=== PATIENT | male | born 1940 | race Caucasian/White ===

== ENCOUNTER 2024-04-07 15:25 | Inpatient (IN) ==
--- NOTE | 2024-04-07 16:05 | Emergency Department Note ---
Impression & Plan Atrial fibrillation, new onset, Human metapneumovirus (hMPV) pneumonia, Anemia ED Provider Note NAME: SANTINO [id number] ARASH AGE: 83 SEX: M : 1940 ARRIVES VIA: Ambulance INFORMANT: Patient, Triage note nursing report ED PROVIDER(S): Ravi Jacobson MD CHIEF COMPLAINT: Shortness of breath, A-fib MEDICAL DECISION MAKING: Patient presents due to concern for shortness of breath. Patient was noted to be in A-fib. IV was established and blood work was obtained. Chest x-ray does show right- sided pleural effusion as well as possible opacity at the right base Patient does not complain of any cough white count is normal. Hemoglobin 9.2. Kidney function is unremarkable. Pro-Thomas was added TSH normal. Urinalysis negative for obvious infection. Bio fire positive for human metapneumovirus. As the patient does have an elevated [id number] score heparin was ordered along with IV Lopressor. Antibiotics deferred to inpatient team at this time. I did speak with the on-call hospitalist KARRI Curiel and the patient was admitted by Dr. Butler. Critical Care: I have personally spent 35 minutes of critical care time in direct management of this patient. This includes bedside care, interpretation of diagnostic studies, and testing, discussion with consultants, patient, and family members, and other require inpatient management activities. This 35 minutes is in excess of all separately billable procedures. Discussion w/ other healthcare providers: KARRI Peng and Dr. Butler inpatient medicine service Prior /Outside records reviewed: I reviewed the patient's records presented from [place] Differential diagnosis: Reactive airway disease, pneumonia, pneumothorax, COPD, CHF, ACS, pulmonary embolism, musculoskeletal, GERD as well as other pathologies were considered. Diagnostics, as interpreted by me: ECG: A-fib, rate of 100, normal QRS, normal axis no ST elevations. Cardiac monitoring: An order was placed for continuous cardiac monitoring. The monitor shows a rate of 95 with sinus rhythm. Patient was placed on pulse oximetry Medical decision rules: [id number] score Imaging studies: I informally interpreted the patient's Chest x-ray shows right-sided pleural effusion as well as possible opacity in the right base with formal report to follow. HPI: Patient presents due to concern for shortness of breath. Patient reportedly had shortness of breath beginning yesterday which is been fairly constant and unchanged. Patient denies any lightheadedness or dizziness. No palpitations. Patient Nuys any chest pains nausea vomiting or diarrhea. The patient is a smoker. Patient does present from [facility] where he states he has been there for approximate 6 months. No known prior history of A-fib. Review of the patient's medical history does not show any A-fib. The patient is not on any anticoagulant medication. PAST MEDICAL HISTORY: See Below PAST SURGICAL HISTORY: See Below SOCIAL HISTORY: See Below HOME MEDICATIONS: See Below ALLERGIES: See Below VITALS: See Below PHYSICAL EXAMINATION: GENERAL: NAD, non-toxic. EYE EXAM: Normal conjunctiva. PERRL, no anisocoria and EOM's grossly intact w/o pain. OROPHARYNX: Moist mucus membranes, grossly normal dentition. NECK: Trachea midline, no stridor. LUNGS: Clear to auscultation. Normal chest wall mechanics. HEART: Irregular irregular, no MRG. ABDOMEN: Abdomen soft, non-tender, no masses, no rebound or guarding. BACK: No CVA TTP. SKIN: No rashes and no bruising. UPPER EXTREMITIES: Upper extremities are grossly normal. LOWER EXTREMITIES: Grossly normal, no edema. NEURO EXAM: A&O x3, cranial nerves II-XII grossly intact, normal speech, moves all 4 extremities. Past Med/Surg History Problem List (Updated 04/08/24 @ 00:36 by Ravi Jacobson MD) Anemia (Acute) Human metapneumovirus (hMPV) pneumonia (Acute) Atrial fibrillation, new onset (Acute) Medical History Esophageal cancer New onset atrial fibrillation Anemia Human metapneumovirus (hMPV) pneumonia PNA (pneumonia) GERD (gastroesophageal reflux disease) History of esophageal cancer Surgical History No pertinent past surgical history Social History Smoking Status: Current every day smoker Tobacco Type: E-cigarettes / Vaping Second Hand Exposure: No; Do You Dip or Chew Tobacco: No; Tobacco Cessation Education Requested by Patient: No Hx Alcohol Use: No Hx Substance Use: No Preferred Language: Mosotho Communication Ability: Effective 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 Beliefs That Will Affect Care: None Current Living Situation: Other Other Information That Helps Us Care for You: No Feels Safe at Home: Yes Safety Concerns: Feels Safe At This Time Assistive Devices: Walker Allergies Allergies Allergy/AdvReac Type Severity Reaction Status Date / Time No Known Allergies Allergy Unverified 04/07/24 18:41 Home Meds Home Medications Medication Instructions Recorded Confirmed acetaminophen 500 mg tablet 500 mg PO QID 04/07/24 04/07/24 (Tylenol Extra Strength) alendronate 70 mg tablet 70 mg PO DAILY 04/07/24 04/07/24 aspirin 81 mg tablet,delayed 81 mg PO DAILY 04/07/24 04/07/24 release brimonidine 0.2 % eye drops 1 drp OPB BID 04/07/24 04/07/24 clindamycin HCl 150 mg capsule 300 mg PO TID 04/07/24 04/07/24 latanoprost 0.005 % eye drops 1 drp OPB HS 04/07/24 04/07/24 meloxicam 7.5 mg tablet 7.5 mg PO DAILY 04/07/24 04/07/24 metoprolol tartrate 25 mg tablet 25 mg PO BID 04/07/24 04/07/24 omeprazole 20 mg capsule,delayed 20 mg PO DAILY 04/07/24 04/07/24 release omeprazole 40 mg capsule,delayed 40 mg PO DAILY 04/07/24 04/07/24 release timolol 0.5 % eye drops 1 drp OPB BID 04/07/24 04/07/24 Results & Data (ED) Vital Signs Vital Signs - 24 hr 04/07/24 15:57 04/07/24 16:06 04/07/24 16:06 Temperature 36.6 C Temperature Source Oral Pulse Rate 102 H 90 Pulse Rate from SpO2 Sensor Pulse Rhythm Regular Pulse Strength Normal Respiratory Rate 21 Respiratory Effort / Characteristics Non-Labored Spontaneous Non-Labored Spontaneous Short of Breath Respiratory Depth Normal Normal Respiratory Pattern Regular Regular Blood Pressure 174/93 H Blood Pressure Mean 120 Blood Pressure Position Lying Pulse Oximetry 90 Oxygen Delivery Method Room Air Room Air Sepsis Recent Fever Within 48 Hours No Sepsis New/Unexplained Change in Mental Status No Sepsis Action Taken by Nursing No Action Required 04/07/24 16:06 04/07/24 16:27 04/07/24 16:30 Temperature Temperature Source Pulse Rate 99 H Pulse Rate from SpO2 Sensor 95 H Pulse Rhythm Pulse Strength Respiratory Rate 26 H Respiratory Effort / Characteristics Respiratory Depth Respiratory Pattern Blood Pressure 172/89 H Blood Pressure Mean 110 Blood Pressure Position Pulse Oximetry 92 Oxygen Delivery Method Room Air Room Air Sepsis Recent Fever Within 48 Hours Sepsis New/Unexplained Change in Mental Status Sepsis Action Taken by Nursing 04/07/24 17:00 Temperature Temperature Source Pulse Rate 103 H Pulse Rate from SpO2 Sensor 104 H Pulse Rhythm Pulse Strength Respiratory Rate 23 Respiratory Effort / Characteristics Respiratory Depth Respiratory Pattern Blood Pressure 185/89 H Blood Pressure Mean 121 Blood Pressure Position Pulse Oximetry 94 Oxygen Delivery Method Room Air Sepsis Recent Fever Within 48 Hours Sepsis New/Unexplained Change in Mental Status Sepsis Action Taken by Long-Term Medications Current Medication List: was personally reviewed by me Laboratory Data Attestation: I reviewed the patient's lab results. 04/07/24 16:10 04/07/24 16:10 Lab Results 04/07/24 04/07/24 04/07/24 Range/Units 16:10 16:10 16:10 WBC 8.99 (4.8-10.8) K/ul RBC 3.98 L (4.70-6.10) M/uL Hgb 9.2 L (14.0-18.0) g/dl Hct 30.7 L (42.0-52.0) % MCV 77.1 L (80.0-100.0) fL MCH 23.1 L (25.0-34.0) pg MCHC 30.0 L (32.0-36.0) g/dL RDW Std Deviation 48.7 H (36.4-46.3) fL RDW Coeff of Vicente 17.4 H (11.5-14.5) % Plt Count 400 (130-400) K/uL MPV 9.1 L (9.4-12.4) fL Immature Gran % (Auto) 0.4 % Neut % (Auto) 70.4 % Lymph % (Auto) 19.6 % Otoe % (Auto) 8.0 % Eos % (Auto) 1.2 % Baso % (Auto) 0.4 % Reticulocyte % (Auto) Cancelled 1.96 Neut # (Auto) 6.32 (1.40-6.50) K/uL Lymph # (Auto) 1.76 (1.20-3.40) K/uL Otoe # (Auto) 0.72 H (0.11-0.59) K/uL Eos # (Auto) 0.11 (0.00-0.50) K/uL Baso # (Auto) 0.04 (0.00-0.20) K/uL Reticulocyte # Cancelled 0.100 Immature Gran # (Auto) 0.04 (0.01-0.20) K/uL PT 11.7 (9.0-12.0) Seconds INR 1.1 (0.9-1.1) APTT 29 (21-31) Seconds PTT Ratio 1.1 Sodium 136 (136-145) mmol/L Potassium 4.2 (3.5-5.1) mmol/L Chloride 104 (98-107) mmol/L Carbon Dioxide 26 (21-32) mmol/L Anion Gap 6 (3-11) BUN 17 (6-23) mg/dl Creatinine 0.91 (0.6-1.4) mg/dl Est Cr Clr Drug Dosing 29.1 ml/min Est GFR ( Amer) 89.4 ml/min Est GFR (Non-Af Amer) 77.1 ml/min BUN/Creatinine Ratio 18.7 (10-20) Glucose 109 H (70-99(Fasting)) mg/dl Calcium 8.9 (8.6-10.3) mg/dl Magnesium 1.9 (1.7-2.4) mg/dl Iron 13 L (35-175) mcg/dl Transferrin 377 H (200-360) mg/dl Ferritin 9.2 (8-388) ng/ml Total Bilirubin 0.5 (0.2-1.0) mg/dl AST 23 (13-39) U/L ALT 13 (7-52) U/L Alkaline Phosphatase 52 (34-104) U/L Troponin I High Sens 16.3 (0-20) pg/ml Total Protein 7.7 (6.0-8.3) gm/dl Albumin 4.1 (3.4-5.0) gm/dl Globulin 3.6 (2.5-4.0) gm/dl Albumin/Globulin Ratio 1.1 (0.9-2) Vitamin B12 190 (180-914) pg/ml Procalcitonin < 0.02 (0-0.5) ng/ml TSH 1.940 (0.300-4.500) uIu/ml Adenovirus (PCR) Not Detected (NotDetected) B. pertussis DNA (PCR) Not Detected (NotDetected) B.parapertussis DNA PCR Not Detected (NotDetected) C. pneumoniae DNA (PCR) Not Detected (NotDetected) Coronavirus OC43 (PCR) Not Detected (NotDetected) Coronavirus HKU1 (PCR) Not Detected (NotDetected) Coronavirus 229E (PCR) Not Detected (NotDetected) SARS-CoV-2 (PCR) Not Detected (NotDetected) Coronavirus NL63 (PCR) Not Detected (NotDetected) Human Metapneumovir PCR DETECTED A (NotDetected) Influenza Type A (PCR) Not Detected (NotDetected) Influenza Type B (PCR) Not Detected (NotDetected) M. pneumoniae (PCR) Not Detected (NotDetected) Parainfluenza 1 (PCR) Not Detected (NotDetected) Parainfluenza 2 (PCR) Not Detected (NotDetected) Parainfluenza 3 (PCR) Not Detected (NotDetected) Parainfluenza 4 (PCR) Not Detected (NotDetected) RSV (PCR) Not Detected (NotDetected) Entero/Rhino (PCR) Not Detected (NotDetected) Administered Medications Brimonidine Tartrate (Brimonidine Tartrate 0.2% 5ml) 1 drops OPB BID SHIRA Stop: 05/07/24 20:59 Last Admin: 04/07/24 22:32 Dose: 1 drops Documented By: ELLIS Heparin Sodium/Dextrose (Heparin Sodium/Dextrose) 25,000 units in 500 mls @ 15 mls/hr IV .Q24H [facility]; Protocol Stop: 05/07/24 17:59 Last Admin: 04/07/24 18:06 Dose: 750 units/hr, 15 mls/hr Documented By: NANCI Co-signed By: ISABEL Ceftriaxone Sodium (Rocephin) 2,000 mg in 50 mls @ 100 mls/hr IV Q24H [facility] Stop: 04/14/24 18:59 Last Infusion: 04/07/24 20:44 Dose: Infused Documented By: Admin: 04/07/24 20:02 Dose: 100 mls/hr Documented By: NANCI Doxycycline Hyclate 100 mg/ (Dextrose) 100 mls @ 50 mls/hr IV Q12H [facility] Stop: 04/14/24 18:59 Last Infusion: 04/07/24 22:30 Dose: Infused Documented By: AMMicheline Admin: 04/07/24 20:14 Dose: 50 mls/hr Documented By: NANCI Latanoprost (Latanoprost 0.005% Op Soln 2.5 Ml Btl) 1 drops OPB HS SHIRA Stop: 05/07/24 20:59 Last Admin: 04/07/24 22:32 Dose: 1 drops Documented By: ELLIS Metoprolol Tartrate (Metoprolol Tartrate 25 Mg Tab) 25 mg PO Q6H [facility] Stop: 05/07/24 19:59 Last Admin: 04/07/24 20:02 Dose: 25 mg Documented By: NANCI Timolol Maleate (Timolol Maleate 0.5% Op Soln 5 Ml Btl) 1 drops OPB BID SHIRA Stop: 05/07/24 20:59 Last Admin: 04/07/24 22:32 Dose: 1 drops Documented By: ELLIS Discontinued Medications Furosemide (Furosemide Inj 20 Mg/2 Ml Vial) 10 mg IV ONE ONE Stop: 04/07/24 20:48 Last Admin: 04/07/24 20:51 Dose: 10 mg Documented By: NANCI Heparin Sodium/Dextrose (Heparin Iv Adult Wt-Based Low-Dose *No* Initial Bolus Protocol) 1 each IV ONE STA; Protocol Stop: 04/07/24 17:32 Last Admin: 04/07/24 18:03 Dose: Not Given Documented By: NANCI Imaging Data Radiologist's Impression: Chest X-Ray 04/07/24 16:14 XR chest 1V portable HISTORY: 83 years-old Male Dyspnea COMPARISON: None TECHNIQUE: AP view the chest FINDINGS: Cardiac silhouette is enlarged. Pulmonary vascular congestion with interstitial coarsening. Layering right greater than left pleural effusions. No pneumothorax. Ill-defined patchy bilateral airspace opacities. Left upper abdominal surgical clips. Bones appear grossly intact. IMPRESSION: 1. Cardiomegaly with interstitial pulmonary edema and small pleural effusions. 2. Additional patchy ill-defined bilateral airspace opacities may represent alveolar pulmonary edema versus pneumonia. ACT 112: Negative or not required by law. The above report was generated using voice recognition software. It may contain grammatical, syntax or spelling errors. Electronically signed by: Wolf Ogden M.D. 04/07/2024 6:04 PM Discharge Plan Visit Data Chief Complaint: Shortness of Breath/Dyspnea Stated Complaint: AFIB, SOB ED Provider: Ravi Jacobson Discharge Problem: Atrial fibrillation, new onset, Human metapneumovirus (hMPV) pneumonia, Anemia Patient Disposition: Admitted As Inpatient Discharge Instructions Interventions: ED Discharge Assessment Last Done: 04/07/24 19:34 Discharge Problem: Anemia Qualifiers: Anemia type: unspecified type Qualified Code(s): D64.9 - Anemia, unspecified
[2024-04-07 16:29] LABS: Basophils # (auto) 0.04 K/uL (0.00-0.20); Basophils % (auto) 0.4 %; Eosinophils # (auto) 0.11 K/uL (0.00-0.50); Eosinophils % (auto) 1.2 %; Hematocrit (blood only) 30.7 % (42.0-52.0); Hemoglobin 9.2 g/dl (14.0-18.0); Immature Granulocytes # (auto) 0.04 K/uL (0.01-0.20); Immature Granulocytes % (auto) 0.4 %; Lymphocytes # (auto) 1.76 K/uL (1.20-3.40); Lymphocytes % (auto) 19.6 %; Mean Corpuscular Hemoglobin 23.1 pg (25.0-34.0); Mean Corpuscular Volume 77.1 fL (80.0-100.0); Mean Platelet Volume 9.1 fL (9.4-12.4); Monocytes # (auto) 0.72 K/uL (0.11-0.59); Neutrophils # (auto) 6.32 K/uL (1.40-6.50); Neutrophils % (auto) 70.4 %; Platelet Count 400 K/uL (130-400); RDW Coefficient of Variation 17.4 % (11.5-14.5); RDW Standard Deviation 48.7 fL (36.4-46.3); Red Blood Count 3.98 M/uL (4.70-6.10); White Blood Count 8.99 K/ul (4.8-10.8)
[2024-04-07 16:43] LABS: Albumin Globulin Ratio 1.1 (0.9-2); Albumin Level 4.1 gm/dl (3.4-5.0); BUN Creatinine Ratio 18.7 (10-20); Bilirubin,Total 0.5 mg/dl (0.2-1.0); Calcium 8.9 mg/dl (8.6-10.3); Creatinine Clr Calc Pharmacy 29.1 ml/min; Est GFR (African American) 89.4 ml/min; Est GFR (Non-African American) 77.1 ml/min; Globulin 3.6 gm/dl (2.5-4.0); Magnesium 1.9 mg/dl (1.7-2.4); Potassium 4.2 mmol/L (3.5-5.1); Total Protein 7.7 gm/dl (6.0-8.3)
[2024-04-07 16:50] LABS: Troponin I High Sensitivity 16.3 pg/ml (0-20)
[2024-04-07 17:11] LABS: INR 1.1 (0.9-1.1); Partial Thromboplastin Ratio 1.1; Partial Thromboplastin Time 29 Seconds (21-31); Prothrombin Time 11.7 Seconds (9.0-12.0)
[2024-04-07 17:26] LABS: Adenovirus PCR Not Detected (NotDetected); Bordetella parapertussis PCR Not Detected (NotDetected); Bordetella pertussis PCR Not Detected (NotDetected); Chlamydia pneumoniae PCR Not Detected (NotDetected); Coronavirus 229E PCR Not Detected (NotDetected); Coronavirus CoV-2 (COVID19)PCR Not Detected (NotDetected); Coronavirus HKU1 PCR Not Detected (NotDetected); Coronavirus NL63 PCR Not Detected (NotDetected); Coronavirus OC43PCR Not Detected (NotDetected); Human Metapneumovirus PCR DETECTED (NotDetected); Influenza A PCR Not Detected (NotDetected); Influenza B PCR Not Detected (NotDetected); Mycoplasma pneumoniae PCR Not Detected (NotDetected); Parainfluenza Virus 1 PCR Not Detected (NotDetected); Parainfluenza Virus 2 PCR Not Detected (NotDetected); Parainfluenza Virus 3 PCR Not Detected (NotDetected); Parainfluenza Virus 4 PCR Not Detected (NotDetected); Respiratory Syncytial VirusPCR Not Detected (NotDetected); Rhinovirus/Enterovirus PCR Not Detected (NotDetected)
[2024-04-07] MEDS ORDERED: METOPROLOL TARTRATE 1 MG/ML VIAL IV PRN ×2 (17:47→18:46)
[2024-04-07] MEDS ORDERED: POLYETHYLENE (MIRALAX) 17 GM PACK PO PRN (17:51)
[2024-04-07] MEDS ORDERED: ONDANSETRON INJ 2 MG/ML 2 ML VIAL IV PRN (17:51)
[2024-04-07] MEDS ORDERED: ALUMINUM/MAGNESIUM SUSP 30 ML UDC PO PRN (17:51)
[2024-04-07] MEDS ORDERED: MAGNESIUM HYDROXIDE SUSP 30 ML UDC PO PRN (17:51)
--- NOTE | 2024-04-07 18:02 | History & Physical Report ---
Date of Service April 07, 2024 Assessment & Plan (1) New onset atrial fibrillation: (2) Anemia: (3) Human metapneumovirus (hMPV) pneumonia: (4) History of esophageal cancer: (5) GERD (gastroesophageal reflux disease): Plan Mr. Landa is an 83 year old male inmate that presented to the ED today from [facility] with complaints of SOB that started yesterday. He did not have hypoxia associated with his SOB and reports that he appears to be 'positional'. In the ED he was found to be in Atrial Fibrillation on the heart monitor. He has no prior history of A-Fib and is not on any anticoagulation medications. In the ED no leukocytosis, otherwise labs unremarkable. Mg 1.9, K+ 4.2, Troponin 16.3. Biofire done in the ED; positive for hMetapneumovirus (hMPV). Patient has a right medial aspect of his heel dime sized wound with purulent drainage that was started on oral clindamycin yesterday and due to complete treatment on 04/16. Additional abrasion on left mid padgett. Hemoglobin 9.2 and given history of esophageal cancer status post surgery and chemo therapy proceed with anemia workup. Patient will be admitted to PCU for further evaluation and management of new onset AF likely in the setting of hMPV. Low dose Heparin gtt without bolus initiated in ED, Will start Metoprolol 25 mg PO Q6 for rate control, obtain ECHO to evaluate for valve abnormalities, Procalcitonin ordered, Wound culture of R heel, blood cultures, Cardiology consultation. Will keep NPO after MN pending Cards consult and will place on Droplet precautions with supportive treatment including flutter valve, incentive spirometry, and Mucinex. Given patient's hemoglobin 9.2 and history of esophageal cancer we will proceed with anemia workup. Will add on TSH. Given possibility of pneumonia in the setting of an incarcerated elderly gentleman recently started on oral antibiotics will initiate IV antibiotics with Rocephin plus Doxy cyclin and will obtain wound culture and UA. Will adjust antibiotic coverage based on culture results. New onset atrial fibrillation: Acute Suspect in the setting of infection due to positive HM PV on bio fire and questionable UA [id number] score: 3 ECHO ordered Heparin gtt started in ED;low dose/no bolus; continue for anticoagulation Patient takes metoprolol 25 mg twice daily as outpatient; will order metoprolol 25 mg every 6 TSH ordered Cardiology consult placed N.p.o. after midnight hMPV pneumonia: Acute Chest x-ray indicates: Cardiomegaly with interstitial pulmonary edema and small pleural effusions. Additional patchy ill-defined bilateral airspace opacities may represent alveolar pulmonary edema versus pneumonia. Given advanced age with possibly numerous source of infection will cover with IV Rocephin and Doxy for now and adjust based on culture results Blood cultures and UA ordered MRSA swab ordered No cough; no sputum cx ordered Supportive treatment with incentive spirometry plus flutter valve Right ankle wound: Acute Reports started a few weeks ago Was started yesterday on clindamycin for a positive wound culture as an outpatient; unsure what the culture results were 2 wounds; right heel plus left mid padgett Wound culture ordered WOCN consult placed for appropriate dressing Anemia of unknown cause: Acute Hemoglobin 9.2 No overt signs of active bleeding Will complete anemia workup with serum TIBC, ferritin levels, retic count, iron, etc. History of esophageal cancer: Chronic Reports underwent surgery and chemotherapy 7 years ago Received care at [facility]; no longer following Disposition: PCP: MARILYN Amrik CODE STATUS: Full code VTE prophylaxis: On heparin drip I spent a total of 87 minutes coordinating, documenting, and providing care for this patient excluding time spent in the performance of separately billed services. All of the aforementioned completed while collaborating with the assigned attending physician for a full treatment plan. Please see their addendum for further details. History of Present Illness Chief Complaint: new onset AF Primary Care Provider: [facility] Mr. Landa is an 83 year old male that presented to the ED today from [facility] with complaints of SOB that started yesterday. He did not have hypoxia associated with his SOB and reports that he appears to be 'positional'. In the ED he was found to be in Atrial Fibrillation on the heart monitor. He has no prior history of A-Fib and is not on any anticoagulation medications. In the ED no leukocytosis, otherwise labs unremarkable. Mg 1.9, K+ 4.2, Troponin 16.3. Biofire done in the ED; positive for hMetapneumovirus (hMPV). Patient has a right medial aspect of his heel dime sized wound with purulent drainage that was started on oral clindamycin yesterday and due to complete treatment on 04/16. Additional abrasion on left mid padgett. Patient with hemoglobin 9.2 and given history of esophageal cancer status post surgery and chemo therapy proceed with anemia workup. Chest x-ray performed in the ED indicated cardiomegaly with interstitial pulmonary edema and small pleural effusions with patchy opacities potentially representing pulmonary edema versus pneumonia. On examination patient AAO x 4 and able to participate in full review of systems in no apparent distress. Patient did not become hypoxic during my encounter. Lung sounds anteriorly clear to auscultation posterior lower lung bases with crackles. Otherwise euvolemic to dry on exam. Do not suspect patient to be in overt heart failure and no known history of heart failure. Patient will be admitted to PCU for further evaluation and management of new onset AF likely in the setting of hMPV. Low dose Heparin gtt without bolus initiated in ED, Will start Metoprolol 25 mg PO Q6 for rate control, obtain ECHO to evaluate for valve abnormalities, Procalcitonin ordered, Wound culture of R heel, blood cultures, Cardiology consultation. Will keep NPO after MN pending Cards consult and will place on Droplet precautions with supportive treatment including flutter valve, incentive spirometry, and Mucinex. Given patient's hemoglobin 9.2 and history of esophageal cancer we will proceed with anemia workup. Will add on TSH. Given possibility of pneumonia in the setting of an incarcerated elderly gentleman recently started on oral antibiotics will initiate IV antibiotics with Rocephin plus Doxy cyclin and will obtain wound culture and UA. Will adjust antibiotic coverage based on culture results. Allergies Allergy/AdvReac Type Severity Reaction Status Date / Time No Known Allergies Allergy Unverified 04/07/24 18:41 Home Medications Medication Instructions Recorded Confirmed Type acetaminophen 500 mg tablet 500 mg PO QID 04/07/24 04/07/24 History (Tylenol Extra Strength) alendronate 70 mg tablet 70 mg PO DAILY 04/07/24 04/07/24 History aspirin 81 mg tablet,delayed 81 mg PO DAILY 04/07/24 04/07/24 History release brimonidine 0.2 % eye drops 1 drp OPB BID 04/07/24 04/07/24 History clindamycin HCl 150 mg capsule 300 mg PO TID 04/07/24 04/07/24 History latanoprost 0.005 % eye drops 1 drp OPB HS 04/07/24 04/07/24 History meloxicam 7.5 mg tablet 7.5 mg PO DAILY 04/07/24 04/07/24 History metoprolol tartrate 25 mg tablet 25 mg PO BID 04/07/24 04/07/24 History omeprazole 20 mg capsule,delayed 20 mg PO DAILY 04/07/24 04/07/24 History release omeprazole 40 mg capsule,delayed 40 mg PO DAILY 04/07/24 04/07/24 History release timolol 0.5 % eye drops 1 drp OPB BID 04/07/24 04/07/24 History Past Med/Surg History Problem List Medical History (Updated 04/07/24 @ 19:30 by KARRI Oleary) Esophageal cancer New onset atrial fibrillation Anemia Human metapneumovirus (hMPV) pneumonia PNA (pneumonia) GERD (gastroesophageal reflux disease) History of esophageal cancer Surgical History (Updated 04/07/24 @ 19:30 by KARIR Oleary) No pertinent past surgical history Social History Smoking Status: Former smoker Preferred Language: Lao Feels Safe at Home: No Review of Systems Review of Systems: Neuro: (-) Falls, trauma, slurred speech HEENT: (-) KULKARNI, dizziness, dysphagia, visual or auditory changes CV: (-) CP, palpitations, swelling Resp: (-) SOB GI: (-) appetite changes, N/V/D, bowel changes : (-) urinary changes Skin: (-) rashes (+) two open areas R finger (+) R ankle open area Psych: (-) anxiety, depression Physical Exam Physical Exam: Neuro: AAOx4, PERRLA, no aphagia, memory changes, CNII-XII grossly intact HEENT: head normocephalic, moist mucus membranes CV: S1/S2, (-) M/G/R, (-) edema, cap refill < 3 seconds Resp: Lungs anteriorly CTA posterior crackles left lower base GI: Abdomen S/NT/ND, Ax4 bowel sounds, (-) CVA tenderness Musculoskeletal: 5/5 B/L UE strength, 5/5 B/L LE strength. No gait disturbance Skin: (-) rashes , (-) erythema. (+) two open areas R finger, dry (+) R medial aspect ankle with purulent drainage Psych: euthymic mood Results & Data Results & Data Vital Signs (Past 12 Hours) Vital Signs Temp Pulse Resp BP Pulse Ox O2 Del Method 04/07/24 17:00 103 H 23 185/89 H 94 Room Air 04/07/24 16:30 172/89 H 04/07/24 16:27 99 H 26 H 92 Room Air 04/07/24 16:06 Room Air 04/07/24 16:06 Room Air 04/07/24 16:06 36.6 C 90 21 174/93 H 90 Room Air 04/07/24 15:57 102 H Laboratory Results Short CBC 04/07/24 Range/Units 16:10 WBC 8.99 (4.8-10.8) K/ul Hgb 9.2 L (14.0-18.0) g/dl Hct 30.7 L (42.0-52.0) % Plt Count 400 (130-400) K/uL BMP 04/07/24 16:10 Sodium 136 Potassium 4.2 Chloride 104 Carbon Dioxide 26 BUN 17 Creatinine 0.91 Glucose 109 H Calcium 8.9 Liver Function 04/07/24 Range/Units 16:10 Total Bilirubin 0.5 (0.2-1.0) mg/dl AST 23 (13-39) U/L ALT 13 (7-52) U/L Alkaline Phosphatase 52 (34-104) U/L Albumin 4.1 (3.4-5.0) gm/dl Diagnostic Findings Chest X-Ray 04/07/24 16:14 XR chest 1V portable HISTORY: 83 years-old Male Dyspnea COMPARISON: None TECHNIQUE: AP view the chest FINDINGS: Cardiac silhouette is enlarged. Pulmonary vascular congestion with interstitial coarsening. Layering right greater than left pleural effusions. No pneumothorax. Ill-defined patchy bilateral airspace opacities. Left upper abdominal surgical clips. Bones appear grossly intact. IMPRESSION: 1. Cardiomegaly with interstitial pulmonary edema and small pleural effusions. 2. Additional patchy ill-defined bilateral airspace opacities may represent alveolar pulmonary edema versus pneumonia. ACT 112: Negative or not required by law. The above report was generated using voice recognition software. It may contain grammatical, syntax or spelling errors. Electronically signed by: Wolf Ogden M.D. 04/07/2024 6:04 PM Code Status & VTE Plan Code Status Full code in the event of cardiac respiratory arrest VTE Prophylaxis Plan VTE Prophylaxis will be ordered: Yes Supervising Physician Co-Signing Physician Notes I have seen and discussed the case with the collaborating advanced practitioner. I agree with the above H&P. I have reviewed and confirmed the patients medical history, the findings on physical examination, and the patients diagnosis and treatment plan with Jacob ZENG and agree with the information documented. In short, Mr. Colin Landa is a gentleman with history of hypertension who is admitted for SOB and found ot be in atrial fibrillation with RVR. multiple possible inciting factors, including human metapneumovirus, multiple lesions that patient reports to have been infected on PO antibiotics. Patient denies history of arrhythmia. Denies chest pain or palpitations. Biofire +human metapneumovirus Exam thin, euvolemic gentleman, irregularly irregular, tacycardic, healed open blister link area on right digit, unroofed blister on right medial ankle, left padgett excoriation #A fib RVR continue low dose heparin 25metoprolol q6h po monitor tele cards rest of plan as above I spent a total of 25 minutes coordinating, documenting, and providing care for this patient excluding time spent in the performance of separately billed services. All of the aforementioned completed outside of collaborating with the assigned advanced practitioner for a full treatment plan. I have reviewed the advanced practitioner's documentation, and I agree with, and take responsibility for the plan of care
[2024-04-07] MEDS: Heparin IV Adult Wt-Based Low-Dose *NO* INITIAL Bolus Protocol IV STA (18:03)
--- NOTE | 2024-04-07 18:05 | XRay Report ---
XR chest 1V portable HISTORY: 83 years-old Male Dyspnea COMPARISON: None TECHNIQUE: AP view the chest FINDINGS: Cardiac silhouette is enlarged. Pulmonary vascular congestion with interstitial coarsening. Layering right greater than left pleural effusions. No pneumothorax. Ill-defined patchy bilateral airspace opa cities. Left upper abdominal surgical clips. Bones appear grossly intact. IMPRESSION: 1. Cardiomegaly with interstitial pulmonary edema and small pleural effusions. 2. Additional patchy ill-defined bilateral airspace opacities may represent alveolar pulmonary edema versus pneumonia. ACT 112: Negative or not required by law. The above report was generated using voice recognition software. It may contain grammatical, syntax o r spelling errors. Electronically signed by: Wolf Ogden M.D. 04/07/2024 6:04 PM
[2024-04-07] MEDS: HEPARIN SODIUM/DEXTROSE 25,000 UNITS/500 ML BAG IV SCH (18:06)
[2024-04-07 19:41] LABS: Thyroid Stimulating Hormone 1.94 uIu/ml (0.300-4.500)
[2024-04-07 19:47] LABS: Ferritin 9.2 ng/ml (8-388)
[2024-04-07] MEDS ORDERED: METOPROLOL TARTRATE 25 MG TAB PO SCH (20:00)
[2024-04-07] MEDS: METOPROLOL TARTRATE 25 MG TAB PO SCH (20:02)
[2024-04-07] MEDS: cefTRIAXone SODIUM 2,000 MG/50 ML BAG IV SCH (20:02)
[2024-04-07] MEDS: DOXYCYCLINE HYCLATE 100 MG in DEXTROSE 5% MINI-B 100 ML IV SCH (20:14)
[2024-04-07 20:16] LABS: Reticulocyte % 1.96 % (0.50-2.00); Reticulocytes # 0.1 10^6/uL (0.020-0.100)
[2024-04-07 20:40] LABS: Appearance Urine Clear (Clear); Bacteria Urine Automated None Seen (None Seen); Bilirubin Urine Negative (Negative); Blood Urine Trace (Negative); Cast Urine Automated 0-2 /lpf (0-2); Color Urine Yellow; Epithelial Cell Urine Auto 0-2 /hpf (0-2); Glucose Urine UA Negative (Negative); Ketones Urine Negative (Negative); Leukocyte Esterase Urine Negative (Negative); Nitrite Urine Negative (Negative); Protein Urine Negative (Negative); Specific Gravity Urine 1.014 (1.000-1.030); Urobilinogen Urine Negative (Negative); WBC Urine Automated 0-5 /hpf (0-5); pH Urine 7.5 (4.5-7.5)
[2024-04-07] MEDS: FUROSEMIDE INJ 20 MG/2 ML VIAL IV ONE (20:51)
[2024-04-07] MEDS: TIMOLOL MALEATE 0.5% OP SOLN 5 ML BTL OPB SCH (22:32)
[2024-04-07] MEDS: BRIMONIDINE TARTRATE 0.2% 5ML OPB SCH (22:32)
[2024-04-07] MEDS: LATANOPROST 0.005% OP SOLN 2.5 ML BTL OPB SCH (22:32)
[2024-04-08 01:14] LABS: ANTI-Xa, UFH(UnfractionatedHep 0.15 IU/ml (0.3-0.7)
[2024-04-08] MEDS: HEPARIN IV BOLUS 3,000 UNITS in SYRINGE 0 ML IV ONE (02:04)
[2024-04-08 08:40] LABS: Basophils # (auto) 0.03 K/uL (0.00-0.20); Basophils % (auto) 0.3 %; Eosinophils # (auto) 0.01 K/uL (0.00-0.50); Eosinophils % (auto) 0.1 %; Hematocrit (blood only) 32.9 % (42.0-52.0); Hemoglobin 10.1 g/dl (14.0-18.0); Immature Granulocytes # (auto) 0.05 K/uL (0.01-0.20); Immature Granulocytes % (auto) 0.5 %; Lymphocytes % (auto) 11.8 %; Mean Corpuscular Hemoglobin 23.1 pg (25.0-34.0); Mean Corpuscular Hgb Conc 30.7 g/dL (32.0-36.0); Mean Corpuscular Volume 75.3 fL (80.0-100.0); Mean Platelet Volume 9.4 fL (9.4-12.4); Monocytes # (auto) 0.89 K/uL (0.11-0.59); Monocytes % (auto) 8.8 %; Neutrophils # (auto) 7.98 K/uL (1.40-6.50); Neutrophils % (auto) 78.5 %; Platelet Count 391 K/uL (130-400); RDW Coefficient of Variation 17.5 % (11.5-14.5); RDW Standard Deviation 47.4 fL (36.4-46.3); Red Blood Count 4.37 M/uL (4.70-6.10); White Blood Count 10.16 K/ul (4.8-10.8)
[2024-04-08] MEDS: MELOXICAM 7.5 MG TAB PO SCH (08:41)
[2024-04-08] MEDS: PANTOprazole 40 MG TAB PO SCH (08:41)
[2024-04-08] MEDS ORDERED: NON-FORMULARY MEDICATION (Omeprazole 20 mg Capsule,Delayed Release(Dr/Ec)) PO SCH (09:00)
[2024-04-08] MEDS ORDERED: ALENDRONATE SODIUM 70 MG TAB PO SCH (09:00)
[2024-04-08 09:02] LABS: ANTI-Xa, UFH(UnfractionatedHep 0.46 IU/ml (0.3-0.7)
[2024-04-08 09:05] LABS: BUN Creatinine Ratio 17.4 (10-20); Creatinine Clr Calc Pharmacy 51.5 ml/min; Est GFR (African American) 88.2 ml/min; Est GFR (Non-African American) 76.1 ml/min; Magnesium 1.7 mg/dl (1.7-2.4); Phosphorus 3.2 mg/dl (2.5-4.9); Potassium 4.1 mmol/L (3.5-5.1)
--- NOTE | 2024-04-08 11:17 | Cardiology Consultation ---
Date of Consultation April 08, 2024 Assessment & Plan (1) Atrial fibrillation, new onset: (2) Human metapneumovirus (hMPV) pneumonia: (3) Anemia: Plan The patient's [id number] score is at least 3 for risk factors of age over 75 and history of hypertension, predicting a moderate to high risk of cardioembolic stroke in the setting of atrial fibrillation. I am however concerned about his presenting hemoglobin of 9.2, 10.1 today, with only other reference hemoglobin level dating back to November, and it was 14 at that time. Microcytic indices noted and iron level is low at 13 mcg/dL. Patient is cachectic in appearance weighing 60.9 kg. For now I think it is reasonable to continue heparin with caution. Given his age of over 79 years and his weight of just over 60 kg, if oral anticoagulant felt to be indicated as hospitalization progresses, would recommend Eliquis 2.5 mg twice daily as the appropriate dose. For now however I would continue heparin while it is determined if the patient is in anticoagulation candidate at all. Echocardiogram reveals preserved left ventricular systolic function, mild left atrial lodgment, mild mitral regurgitation. Patient was already on metoprolol tartrate 25 mg twice daily prior to hospitalization. Received 25 mg this morning, and will give an additional dose of 25 mg now, and then changed to metoprolol tartrate 50 mg twice daily. History of Present Illness Attending Physician: Na Holt MD History of Present Illness Mr Landa is an 83 year old male seen in cardiology consultation per the request of KARRI Malone for the evaluation of shortness of breath and new onset atrial fibrillation. He is an inmate at [facility] who presented yesterday with complaints of short ness of breath. He is not very descriptive with regards to his history. Patient has a past history of esophageal carcinoma, the details of which are unknown but has a history of surgery and chemotherapy. Patient has been found to have metapneumovirus and atrial fibrillation. Ventricular rate was mildly elevated on initial EKG. His prior to hospital dose of metoprolol was increased overnight last night, and currently rate controlled atrial fibrillation in the range of 80 to 100 bpm present. He has several skin wounds on the anterior left tibia which are dressed. Denies any recent cough or cold symptoms. He is an everyday smoker. Allergies Allergy/AdvReac Type Severity Reaction Status Date / Time No Known Allergies Allergy Unverified 04/07/24 18:41 Home Medications Medication Instructions Recorded Confirmed Type acetaminophen 500 mg tablet 500 mg PO QID 04/07/24 04/07/24 History (Tylenol Extra Strength) alendronate 70 mg tablet 70 mg PO DAILY 04/07/24 04/07/24 History aspirin 81 mg tablet,delayed 81 mg PO DAILY 04/07/24 04/07/24 History release brimonidine 0.2 % eye drops 1 drp OPB BID 04/07/24 04/07/24 History clindamycin HCl 150 mg capsule 300 mg PO TID 04/07/24 04/07/24 History latanoprost 0.005 % eye drops 1 drp OPB HS 04/07/24 04/07/24 History meloxicam 7.5 mg tablet 7.5 mg PO DAILY 04/07/24 04/07/24 History metoprolol tartrate 25 mg tablet 25 mg PO BID 04/07/24 04/07/24 History omeprazole 20 mg capsule,delayed 20 mg PO DAILY 04/07/24 04/07/24 History release omeprazole 40 mg capsule,delayed 40 mg PO DAILY 04/07/24 04/07/24 History release timolol 0.5 % eye drops 1 drp OPB BID 04/07/24 04/07/24 History Patient History Medical History Esophageal cancer New onset atrial fibrillation Anemia Human metapneumovirus (hMPV) pneumonia PNA (pneumonia) GERD (gastroesophageal reflux disease) History of esophageal cancer Surgical History No pertinent past surgical history Social History Smoking Status: Current every day smoker Tobacco Type: E-cigarettes / Vaping Second Hand Exposure: No; Do You Dip or Chew Tobacco: No; Tobacco Cessation Education Requested by Patient: No Hx Alcohol Use: No Hx Substance Use: No Preferred Language: Italian Communication Ability: Effective 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 Required: No Beliefs That Will Affect Care: None Current Living Situation: Other Other Information That Helps Us Care for You: No Feels Safe at Home: Yes Safety Concerns: Feels Safe At This Time Assistive Devices: Walker Review of Systems Review of Systems: All systems reviewed & are unremarkable except as noted in HPI & below Physical Exam Constitutional: + cachectic Eyes: PERRL, conjunctivae normal, anicteric sclerae Respiratory: normal respiratory effort, lungs clear to auscultation Cardiovascular: Rate/Rhythm: + irregularly irregular Heart Sounds: no murmur Vessels: no JVD Extremities: no edema Gastrointestinal (Abdomen): normal bowel sounds, soft, nontender, no hepatosplenomegaly Skin: no rashes, warm and dry Neurologic: PERRL, EOMI, accommodation nl, no face palsy, no dysarthria Results & Data Vital Signs (Past 12 Hours) Vital Signs Temp Pulse Resp BP O2 Del Method O2 Flow Rate 04/08/24 11:01 Nasal Cannula 2 04/08/24 08:05 36.4 C L 80 18 158/72 H 04/08/24 02:06 36.5 C 108 H 20 153/73 H Room Air Laboratory Results Cardiac Enzymes 04/07/24 Range/Units 16:10 AST 23 (13-39) U/L Troponin I High Sens 16.3 (0-20) pg/ml Coagulation 04/07/24 Range/Units 16:10 PT 11.7 (9.0-12.0) Seconds APTT 29 (21-31) Seconds CBC 04/07/24 04/08/24 Range/Units 16:10 08:10 WBC 8.99 10.16 (4.8-10.8) K/ul RBC 3.98 L 4.37 L (4.70-6.10) M/uL Hgb 9.2 L 10.1 L (14.0-18.0) g/dl Hct 30.7 L 32.9 L (42.0-52.0) % Plt Count 400 391 (130-400) K/uL Neut # (Auto) 6.32 7.98 H (1.40-6.50) K/uL Lymph # (Auto) 1.76 1.20 (1.20-3.40) K/uL [place] # (Auto) 0.72 H 0.89 H (0.11-0.59) K/uL Eos # (Auto) 0.11 0.01 (0.00-0.50) K/uL Baso # (Auto) 0.04 0.03 (0.00-0.20) K/uL Comprehensive Metabolic Panel 04/07/24 04/08/24 Range/Units 16:10 08:10 Sodium 136 134 L (136-145) mmol/L Potassium 4.2 4.1 (3.5-5.1) mmol/L Chloride 104 100 (98-107) mmol/L Carbon Dioxide 26 25 (21-32) mmol/L BUN 17 16 (6-23) mg/dl Creatinine 0.91 0.92 (0.6-1.4) mg/dl Glucose 109 H 117 H (70-99(Fasting)) mg/dl Calcium 8.9 9.0 (8.6-10.3) mg/dl AST 23 (13-39) U/L ALT 13 (7-52) U/L Alkaline Phosphatase 52 (34-104) U/L Total Protein 7.7 (6.0-8.3) gm/dl Albumin 4.1 (3.4-5.0) gm/dl Intake and Output 04/07/24 04/08/24 04/08/24 22:59 06:59 14:59 Intake Total 270 / 378.5 108.5 / 378.5 204.1 / 204.1 Output Total 550 / 550 Balance -280 / -171.5 108.5 / -171.5 204.1 / 204.1 Intake: IV 150 / 258.5 108.5 / 258.5 204.1 / 204.1 Doxycycline Hyclate 100 mg In 100 / 100 100 / 100 Dextrose 5% Mini-B 100 ml @ 50 mls/hr IV Q12H SHIRA Rx#:[id number] Heparin Sodium/Dextrose 25,000 108.5 / 108.5 104.1 / 104.1 units In 500 ml @ 900 UNITS/HR 18 mls/hr IV .Q24H SHIRA Rx#: [id number] SODIUM 2,000 mg In 50 / 50 50 ml @ 100 mls/hr IV Q24H SHIRA Rx#:[id number] Oral 120 / 120 Output: Urine 550 / 550 Other: Weight 60.6 kg 60.9 kg Weight Measurement Method [facility] in [facility] Diagnostic Findings EKG performed 04/07/2024 and interpreted independently: Atrial fibrillation at 100 bpm, no significant repolarization abnormalities, compared to the previous tracing dated back to November, atrial fibrillation has replaced normal sinus rhythm. Summary of transthoracic echocardiogram performed 04/08/2024: The study is technically adequate for the evaluation of the referral indication. Rate controlled atrial fibrillation with ventricular rate mostly in the 80s present during the study. There is borderline concentric left ventricular hypertrophy. No regional wall motion abnormalities noted. Left ventricular systolic function is normal. Left Ventricular Ejection Fraction = 55-60%. The right ventricle is normal in size and function. The left atrium is mildly dilated. There is mild mitral regurgitation. The pulmonary artery systolic pressure is estimated to be 39 mmHg, mildly elevated. There are no prior studies available for comparison. (3) Anemia Anemia type: unspecified type Qualified Code(s): D64.9 - Anemia, unspecified
[2024-04-08] MEDS: METOPROLOL TARTRATE 25 MG TAB PO ONE (12:07)
--- NOTE | 2024-04-08 14:22 | Hospitalist Progress Note ---
Date of Service April 08, 2024 Assessment & Plan (1) New onset atrial fibrillation: (2) Anemia: (3) Human metapneumovirus (hMPV) pneumonia: (4) History of esophageal cancer: (5) GERD (gastroesophageal reflux disease): Plan Mr. Landa is an 83 year old male inmate that presented to the ED today from [facility] with complaints of SOB that started yesterday. He did not have hypoxia associated with his SOB and reports that he appears to be 'positional'. In the ED he was found to be in Atrial Fibrillation on the heart monitor. He has no prior history of A-Fib and is not on any anticoagulation medications. In the ED no leukocytosis, otherwise labs unremarkable. Mg 1.9, K+ 4.2, Troponin 16.3. Biofire done in the ED; positive for hMetapneumovirus (hMPV). Patient has a right medial aspect of his heel dime sized wound with purulent drainage that was started on oral clindamycin yesterday and due to complete treatment on 04/16. Additional abrasion on left mid padgett. Hemoglobin 9.2 and given history of esophageal cancer status post surgery and chemo therapy proceed with anemia workup. Patient will be admitted to PCU for further evaluation and management of new onset AF likely in the setting of hMPV. Low dose Heparin gtt without bolus initiated in ED, Will start Metoprolol 25 mg PO Q6 for rate control, obtain ECHO to evaluate for valve abnormalities, Procalcitonin ordered, Wound culture of R heel, blood cultures, Cardiology consultation. Will keep NPO after MN pending Cards consult and will place on Droplet precautions with supportive treatment including flutter valve, incentive spirometry, and Mucinex. Given patient's hemoglobin 9.2 and history of esophageal cancer we will proceed with anemia workup. Will add on TSH. Given possibility of pneumonia in the setting of an incarcerated elderly gentleman recently started on oral antibiotics will initiate IV antibiotics with Rocephin plus Doxy cyclin and will obtain wound culture and UA. Will adjust antibiotic coverage based on culture results. New onset atrial fibrillation: Acute Suspect in the setting of infection due to positive HM PV on bio fire and questionable UA [id number] score: 3 ECHO showed-rate controlled A-fib, borderline concentric LVH, no regional wall motion abnormalities, LV systolic function is normal with EF 55 to 60%, RV is normal in size and function, left atrium is mildly dilated, mild mitral regurgitation, pulmonary artery systolic pressure is estimated to be 39 mmHg Heparin gtt started in ED;low dose/no bolus; continue for anticoagulation TSH - Normal Cardiology consult-appreciate input and recommendation Metoprolol tartrate has been increased to 50 mg twice daily Heart rate is controlled Will start Eliquis if no evidence of active bleeding and hemoglobin remained stable hMPV pneumonia: Acute Chest x-ray indicates: Cardiomegaly with interstitial pulmonary edema and small pleural effusions. Additional patchy ill-defined bilateral airspace opacities may represent alveolar pulmonary edema versus pneumonia. Given advanced age with possibly numerous source of infection will cover with IV Rocephin and Doxy for now and adjust based on culture results Blood cultures and UA ordered MRSA swab ordered No cough; no sputum cx ordered Supportive treatment with incentive spirometry plus flutter valve Will continue the current intravenous antibiotic He feels much better clinically but still requiring 2 L to maintain saturation Right ankle wound: Acute Reports started a few weeks ago Was started yesterday on clindamycin for a positive wound culture as an outpatient; unsure what the culture results were 2 wounds; right heel plus left mid padgett Wound culture ordered WOCN consult placed for appropriate dressing Anemia of unknown cause: Acute Hemoglobin 9.2 No overt signs of active bleeding Will complete anemia workup with serum TIBC, ferritin levels, retic count, iron, etc. Iron level has been low, normal B12 and folate Will check Hemoccult Start oral iron History of esophageal cancer: Chronic Reports underwent surgery and chemotherapy 7 years ago Received care at [facility]; no longer following Disposition: PCP: MARILYN Amrik CODE STATUS: Full code VTE prophylaxis: On heparin drip Admission and Anticipated Discharge Date Admission Date: April 07, 2024 Subjective 04/08/2024 The patient was seen and examined in telemetry unit He has been stable Seems to very poor historian and cannot express his concern Denies any chest pain, palpitation or shortness of breath though he has been requiring 2 L to maintain saturation Review of Systems Review of Systems: All systems reviewed and are unremarkable except as noted below Physical Exam Physical Exam: Lying in bed without any acute distress Constitutional: + ill appearing and average body habitus Eyes: PERRL, conjunctivae normal, anicteric sclerae ENMT: external ear and nose normal, oropharynx normal Neck: trachea midline, no thyromegaly Respiratory: no respiratory distress Auscultation: + diminished lung sounds and + crackles (Minimal crackles at the bases) Cardiovascular: Rate/Rhythm: + irregularly irregular; not tachycardic Heart Sounds: normal S1, normal S2 and + murmur Extremities: no edema Gastrointestinal (Abdomen): Inspection/Auscultation: normal bowel sounds; abdomen not distended Percussion/Palpation: abdomen soft; abdomen nontender Musculoskeletal: No acute arthritis involving any of the joint Neurologic: normal touch/pain/proprioception and moves all extremities; no focal motor deficits Lymphatic: no cervical or axillary lymphadenopathy Results & Data Results & Data Vital Signs (Past 12 Hours) Vital Signs Temp Pulse Pulse Resp BP Pulse Ox O2 Del Method 04/08/24 11:19 77 04/08/24 11:17 36.7 C 74 18 130/77 97 Nasal Cannula 04/08/24 11:01 Nasal Cannula 04/08/24 08:05 36.4 C L 80 18 158/72 H O2 Flow Rate 04/08/24 11:19 04/08/24 11:17 2 04/08/24 11:01 2 04/08/24 08:05 Laboratory Results Short CBC 04/07/24 04/08/24 Range/Units 16:10 08:10 WBC 8.99 10.16 (4.8-10.8) K/ul Hgb 9.2 L 10.1 L (14.0-18.0) g/dl Hct 30.7 L 32.9 L (42.0-52.0) % Plt Count 400 391 (130-400) K/uL BMP 04/07/24 04/08/24 16:10 08:10 Sodium 136 134 L Potassium 4.2 4.1 Chloride 104 100 Carbon Dioxide 26 25 BUN 17 16 Creatinine 0.91 0.92 Glucose 109 H 117 H Calcium 8.9 9.0 Liver Function 04/07/24 Range/Units 16:10 Total Bilirubin 0.5 (0.2-1.0) mg/dl AST 23 (13-39) U/L ALT 13 (7-52) U/L Alkaline Phosphatase 52 (34-104) U/L Albumin 4.1 (3.4-5.0) gm/dl Urine 04/07/24 Range/Units 19:45 Urine Color Yellow Urine Appearance Clear (Clear) Urine pH 7.5 (4.5-7.5) Ur Specific [place] 1.014 (1.000-1.030) Urine Protein Negative (Negative) Urine Glucose (UA) Negative (Negative) Medications Administered Current Inpatient Medications Acetaminophen (Acetaminophen 325 Mg Tab) 650 mg PO Q4H PRN PRN Reason: Pain or Fever Stop: 05/07/24 17:50 Al Hydrox/Mg Hydrox/Simethicone (Aluminum/Magnesium Susp 30 Ml Udc) 15 ml PO Q4H PRN PRN Reason: Dyspepsia Stop: 05/07/24 17:50 Brimonidine Tartrate (Brimonidine Tartrate 0.2% 5ml) 1 drops OPB BID [facility] Stop: 05/07/24 20:59 Last Admin: 04/08/24 08:42 Dose: 1 drops Heparin Sodium/Dextrose (Heparin Sodium/Dextrose) 25,000 units in 500 mls @ 18 mls/hr IV .Q24H [facility]; Protocol Stop: 05/07/24 17:59 Last Titration: 04/08/24 07:07 Dose: 900 units/hr, 18 mls/hr Ceftriaxone Sodium (Rocephin) 2,000 mg in 50 mls @ 100 mls/hr IV Q24H [facility] Stop: 04/14/24 18:59 Last Infusion: 04/07/24 20:44 Dose: Infused Doxycycline Hyclate 100 mg/ (Dextrose) 100 mls @ 50 mls/hr IV Q12H [facility] Stop: 04/14/24 18:59 Last Infusion: 04/08/24 08:40 Dose: Infused Latanoprost (Latanoprost 0.005% Op Soln 2.5 Ml Btl) 1 drops OPB HS [facility] Stop: 05/07/24 20:59 Last Admin: 04/07/24 22:32 Dose: 1 drops Magnesium Hydroxide (Magnesium Hydroxide Susp 30 Ml Udc) 30 ml PO Q12H PRN PRN Reason: Constipation Stop: 05/07/24 17:50 Meloxicam (Meloxicam 7.5 Mg Tab) 7.5 mg PO DAILY [facility] Stop: 05/08/24 08:59 Last Admin: 04/08/24 08:41 Dose: 7.5 mg Metoprolol Tartrate (Metoprolol Tartrate 1 Mg/Ml Vial) 5 mg IV Q6 PRN PRN Reason: Tachycardia Stop: 05/08/24 00:00 Metoprolol Tartrate (Metoprolol Tartrate 50 Mg Tab) 50 mg PO BID [facility] Stop: 05/08/24 20:59 Ondansetron HCl (Ondansetron Inj 2 Mg/Ml 2 Ml Vial) 4 mg IV Q6H PRN PRN Reason: Nausea Stop: 05/07/24 17:50 Pantoprazole Sodium (Pantoprazole 40 Mg Tab) 40 mg PO DAILY [facility] Stop: 05/08/24 08:59 Last Admin: 04/08/24 08:41 Dose: 40 mg Polyethylene Glycol (Polyethylene (Miralax) 17 Gm Pack) 17 gm PO DAILY PRN PRN Reason: Constipation Stop: 05/07/24 17:50 Timolol Maleate (Timolol Maleate 0.5% Op Soln 5 Ml Btl) 1 drops OPB BID [facility] Stop: 05/07/24 20:59 Last Admin: 04/08/24 08:42 Dose: 1 drops
[2024-04-08] MEDS: FERROUS SULFATE 325 MG TAB PO SCH (17:15)
[2024-04-08] MEDS: METOPROLOL TARTRATE 50 MG TAB PO SCH (20:38)
[2024-04-09 06:54] LABS: Basophils # (auto) 0.03 K/uL (0.00-0.20); Basophils % (auto) 0.3 %; Eosinophils # (auto) 0.03 K/uL (0.00-0.50); Eosinophils % (auto) 0.3 %; Hematocrit (blood only) 28.5 % (42.0-52.0); Immature Granulocytes # (auto) 0.05 K/uL (0.01-0.20); Immature Granulocytes % (auto) 0.5 %; Lymphocytes # (auto) 1.54 K/uL (1.20-3.40); Lymphocytes % (auto) 15.3 %; Mean Corpuscular Hemoglobin 23.4 pg (25.0-34.0); Mean Corpuscular Hgb Conc 31.6 g/dL (32.0-36.0); Mean Platelet Volume 9.5 fL (9.4-12.4); Monocytes # (auto) 1.04 K/uL (0.11-0.59); Monocytes % (auto) 10.3 %; Neutrophils # (auto) 7.39 K/uL (1.40-6.50); Neutrophils % (auto) 73.3 %; Platelet Count 334 K/uL (130-400); RDW Standard Deviation 48.3 fL (36.4-46.3); Red Blood Count 3.85 M/uL (4.70-6.10); White Blood Count 10.08 K/ul (4.8-10.8)
[2024-04-09 07:19] LABS: Calcium 8.6 mg/dl (8.6-10.3); Magnesium 1.7 mg/dl (1.7-2.4); Potassium 3.7 mmol/L (3.5-5.1)
[2024-04-09 07:20] LABS: ANTI-Xa, UFH(UnfractionatedHep 0.22 IU/ml (0.3-0.7)
[2024-04-09 07:25] LABS: BUN Creatinine Ratio 20.8 (10-20); Creatinine Clr Calc Pharmacy 49.4 ml/min; Est GFR (African American) 83.8 ml/min; Est GFR (Non-African American) 72.3 ml/min
--- NOTE | 2024-04-09 10:47 | Cardiology Progress Note ---
Date of Service April 09, 2024 Assessment & Plan (1) Atrial fibrillation, new onset: (2) Human metapneumovirus (hMPV) pneumonia: (3) Anemia: Plan The patient's [id number] score is at least 3 for risk factors of age over 75 and history of hypertension, predicting a moderate to high risk of cardioembolic stroke in the setting of atrial fibrillation. Concerns regarding anemia of unknown chronicity with hemoglobin of 9.2 on admission, 9.0 today, with only other reference hemoglobin level dating back to November, and it was 14 at that time. Microcytic indices noted and iron level is low at 13 mcg/dL. Patient is cachectic in appearance weighing 60.9 kg. Continue heparin with caution. Given his age of over 79 years and his weight of just over 60 kg, if oral anticoagulant felt to be indicated as hospitalization progresses, would recommend Eliquis 2.5 mg twice daily as the appropriate dose. Continue metoprolol to tartrate 50 mg twice daily. Discontinue meloxicam. Agree with iron supplementation. Monitor for any signs/symptoms of GI/ blood loss. Further evaluation of anemia as per internal medicine. I spent a total of 40 minutes on the date of service in preparation, delivery, and documentation of the care provided to this patient, excluding any time spent in the performance of separately billed services. Admission and Anticipated Discharge Date Admission Date: April 07, 2024 Subjective Patient seen examined the bedside. Offers no complaints. Telemetry reveals atrial fibrillation, heart rate 70-80s. Denies palpitations or chest pain. Echocardiogram reveals preserved LV systolic function with mild left atrial enlargement, and mild mitral regurgitation. Review of Systems Review of Systems: All systems reviewed & are unremarkable except as noted in Subjective Physical Exam Constitutional: well nourished; no acute distress Respiratory: no respiratory distress, no labored breathing and no retractions Auscultation: no crackles, no rales, no rhonchi and no wheezes Cardiovascular: Rate/Rhythm: + irregularly irregular Heart Sounds: normal S1 and normal S2; no murmur Vessels: radial pulses present; no JVD Extremities: no edema Gastrointestinal (Abdomen): Inspection/Auscultation: normal bowel sounds; abdomen not distended Percussion/Palpation: abdomen soft; abdomen nontender, no guarding and abdomen not rigid Neurologic: CN's II-XI intact bilaterally and moves all extremities Results & Data Vital Signs (Past 12 Hours) Vital Signs Temp Pulse Pulse Resp BP BP Pulse Ox 04/09/24 08:02 76 18 127/71 95 04/09/24 03:05 36.6 C 85 18 128/74 93 04/08/24 23:05 36.5 C 83 18 148/83 H 95 04/08/24 23:00 77 O2 Del Method O2 Flow Rate 04/09/24 08:02 Nasal Cannula 04/09/24 03:05 Nasal Cannula 2 04/08/24 23:05 Room Air 04/08/24 23:00 Laboratory Results CBC 04/09/24 Range/Units 06:28 WBC 10.08 (4.8-10.8) K/ul RBC 3.85 L (4.70-6.10) M/uL Hgb 9.0 L (14.0-18.0) g/dl Hct 28.5 L (42.0-52.0) % Plt Count 334 (130-400) K/uL Neut # (Auto) 7.39 H (1.40-6.50) K/uL Lymph # (Auto) 1.54 (1.20-3.40) K/uL [place] # (Auto) 1.04 H (0.11-0.59) K/uL Eos # (Auto) 0.03 (0.00-0.50) K/uL Baso # (Auto) 0.03 (0.00-0.20) K/uL Comprehensive Metabolic Panel 04/09/24 Range/Units 06:28 Sodium 132 L (136-145) mmol/L Potassium 3.7 (3.5-5.1) mmol/L Chloride 100 (98-107) mmol/L Carbon Dioxide 24 (21-32) mmol/L BUN 20 (6-23) mg/dl Creatinine 0.96 (0.6-1.4) mg/dl Glucose 97 (70-99(Fasting)) mg/dl Calcium 8.6 (8.6-10.3) mg/dl Intake and Output 04/08/24 04/09/24 04/09/24 22:59 06:59 14:59 Intake Total 426.6 / 780.7 150 / 780.7 283.6 / 283.6 Balance 426.6 / 780.7 150 / 780.7 283.6 / 283.6 Intake: IV 426.6 / 630.7 283.6 / 283.6 Doxycycline Hyclate 100 mg In 100 / 200 100 / 100 Dextrose 5% Mini-B 100 ml @ 50 mls/hr IV Q12H [facility] Rx#:[id number] Heparin Sodium/Dextrose 25,000 276.6 / 380.7 183.6 / 183.6 units In 500 ml @ 900 UNITS/HR 18 mls/hr IV .Q24H [facility] Rx#: [id number] cefTRIAXone SODIUM 2,000 mg In 50 / 50 50 ml @ 100 mls/hr IV Q24H [facility] Rx#:[id number] Oral 150 / 150 Other: # Unmeasured Voids 1 2 Weight 60.9 kg 61 kg Weight Measurement Method Built in [facility] (3) Anemia Anemia type: unspecified type Qualified Code(s): D64.9 - Anemia, unspecified
--- NOTE | 2024-04-09 15:10 | Hospitalist Progress Note ---
Date of Service April 09, 2024 Assessment & Plan (1) New onset atrial fibrillation: (2) Anemia: (3) Human metapneumovirus (hMPV) pneumonia: (4) History of esophageal cancer: (5) GERD (gastroesophageal reflux disease): Plan Mr. Landa is an 83 year old male inmate that presented to the ED today from [facility] with complaints of SOB that started yesterday. He did not have hypoxia associated with his SOB and reports that he appears to be 'positional'. In the ED he was found to be in Atrial Fibrillation on the heart monitor. He has no prior history of A-Fib and is not on any anticoagulation medications. In the ED no leukocytosis, otherwise labs unremarkable. Mg 1.9, K+ 4.2, Troponin 16.3. Biofire done in the ED; positive for hMetapneumovirus (hMPV). Patient has a right medial aspect of his heel dime sized wound with purulent drainage that was started on oral clindamycin yesterday and due to complete treatment on 04/16. Additional abrasion on left mid padgett. Hemoglobin 9.2 and given history of esophageal cancer status post surgery and chemo therapy proceed with anemia workup. Patient will be admitted to PCU for further evaluation and management of new onset AF likely in the setting of hMPV. Low dose Heparin gtt without bolus initiated in ED, Will start Metoprolol 25 mg PO Q6 for rate control, obtain ECHO to evaluate for valve abnormalities, Procalcitonin ordered, Wound culture of R heel, blood cultures, Cardiology consultation. Will keep NPO after MN pending Cards consult and will place on Droplet precautions with supportive treatment including flutter valve, incentive spirometry, and Mucinex. Given patient's hemoglobin 9.2 and history of esophageal cancer we will proceed with anemia workup. Will add on TSH. Given possibility of pneumonia in the setting of an incarcerated elderly gentleman recently started on oral antibiotics will initiate IV antibiotics with Rocephin plus Doxy cyclin and will obtain wound culture and UA. Will adjust antibiotic coverage based on culture results. New onset atrial fibrillation: Acute Suspect in the setting of infection due to positive HM PV on bio fire and questionable UA [id number] score: 3 ECHO showed-rate controlled A-fib, borderline concentric LVH, no regional wall motion abnormalities, LV systolic function is normal with EF 55 to 60%, RV is normal in size and function, left atrium is mildly dilated, mild mitral regurgitation, pulmonary artery systolic pressure is estimated to be 39 mmHg Heparin gtt started in ED;low dose/no bolus; continue for anticoagulation TSH - Normal Cardiology consult-appreciate input and recommendation Metoprolol tartrate has been increased to 50 mg twice daily Heart rate is controlled Will start Eliquis if no evidence of active bleeding and hemoglobin remained stable Hemoglobin is slightly down at 9.0 as of 04/09/2024 Will check his stool for blood Monitor CBC hMPV pneumonia: Acute Chest x-ray indicates: Cardiomegaly with interstitial pulmonary edema and small pleural effusions. Additional patchy ill-defined bilateral airspace opacities may represent alveolar pulmonary edema versus pneumonia. Given advanced age with possibly numerous source of infection will cover with IV Rocephin and Doxy for now and adjust based on culture results Blood cultures and UA ordered MRSA swab ordered No cough; no sputum cx ordered Supportive treatment with incentive spirometry plus flutter valve Will continue the current intravenous antibiotic He feels much better clinically but still requiring 2 L to maintain saturation Will continue oral doxycycline and intravenous ceftriaxone for now Right ankle wound: Acute Reports started a few weeks ago Was started yesterday on clindamycin for a positive wound culture as an outpatient; unsure what the culture results were 2 wounds; right heel plus left mid padgett Wound culture ordered WOCN consult placed for appropriate dressing Anemia of unknown cause: Acute Hemoglobin 9.2 No overt signs of active bleeding Will complete anemia workup with serum TIBC, ferritin levels, retic count, iron, etc. Iron level has been low, normal B12 and folate Will check Hemoccult-pending Start oral iron History of esophageal cancer: Chronic Reports underwent surgery and chemotherapy 7 years ago Received care at [facility]; no longer following Disposition: PCP: SCI Amrik CODE STATUS: Full code VTE prophylaxis: On heparin drip Admission and Anticipated Discharge Date Admission Date: April 07, 2024 Subjective 04/08/2024 The patient was seen and examined in telemetry unit He has been stable Seems to very poor historian and cannot express his concern Denies any chest pain, palpitation or shortness of breath though he has been requiring 2 L to maintain saturation 04/09/2024 Patient was seen and examined in telemetry unit He has been stable without any acute symptoms Complains today of black stool Will get stool Hemoccult No acute cardiac symptoms Review of Systems Review of Systems: All systems reviewed and are unremarkable except as noted below Physical Exam Physical Exam: Lying in bed without any acute distress Constitutional: + ill appearing and average body habitus Eyes: PERRL, conjunctivae normal, anicteric sclerae ENMT: external ear and nose normal, oropharynx normal Neck: trachea midline, no thyromegaly Respiratory: no respiratory distress Auscultation: + diminished lung sounds and + crackles (Minimal crackles at the bases) Cardiovascular: Rate/Rhythm: + irregularly irregular; not tachycardic Heart Sounds: normal S1, normal S2 and + murmur Extremities: no edema Gastrointestinal (Abdomen): Inspection/Auscultation: normal bowel sounds; abdomen not distended Percussion/Palpation: abdomen soft; abdomen nontender Musculoskeletal: No acute arthritis involving any of the joints Neurologic: normal touch/pain/proprioception and moves all extremities; no focal motor deficits Lymphatic: no cervical or axillary lymphadenopathy Results & Data Results & Data Vital Signs (Past 12 Hours) Vital Signs Pulse Resp BP BP Pulse Ox O2 Del Method O2 Flow Rate 04/09/24 12:00 73 18 121/77 96 Nasal Cannula 04/09/24 10:53 Nasal Cannula 2 04/09/24 08:02 76 18 127/71 95 Nasal Cannula Laboratory Results Short CBC 04/09/24 Range/Units 06:28 WBC 10.08 (4.8-10.8) K/ul Hgb 9.0 L (14.0-18.0) g/dl Hct 28.5 L (42.0-52.0) % Plt Count 334 (130-400) K/uL BMP 04/09/24 06:28 Sodium 132 L Potassium 3.7 Chloride 100 Carbon Dioxide 24 BUN 20 Creatinine 0.96 Glucose 97 Calcium 8.6 Medications Administered Current Inpatient Medications Acetaminophen (Acetaminophen 325 Mg Tab) 650 mg PO Q4H PRN PRN Reason: Pain or Fever Stop: 05/07/24 17:50 Al Hydrox/Mg Hydrox/Simethicone (Aluminum/Magnesium Susp 30 Ml Udc) 15 ml PO Q4H PRN PRN Reason: Dyspepsia Stop: 05/07/24 17:50 Brimonidine Tartrate (Brimonidine Tartrate 0.2% 5ml) 1 drops OPB BID [facility] Stop: 05/07/24 20:59 Last Admin: 04/09/24 08:57 Dose: 1 drops Doxycycline Hyclate (Doxycycline Hyclate 100 Mg Cap) 100 mg PO Q12H [facility] Stop: 04/11/24 18:59 Ferrous Sulfate (Ferrous Sulfate 325 Mg Tab) 325 mg PO BIDM [facility] Stop: 05/08/24 16:59 Last Admin: 04/09/24 08:57 Dose: 325 mg Heparin Sodium/Dextrose (Heparin Sodium/Dextrose) 25,000 units in 500 mls @ 18 mls/hr IV .Q24H [facility]; Protocol Stop: 05/07/24 17:59 Last Titration: 04/09/24 08:41 Dose: 950 units/hr, 19 mls/hr Ceftriaxone Sodium (Rocephin) 2,000 mg in 50 mls @ 100 mls/hr IV Q24H [facility] Stop: 04/14/24 18:59 Last Infusion: 04/08/24 19:05 Dose: Infused Latanoprost (Latanoprost 0.005% Op Soln 2.5 Ml Btl) 1 drops OPB HS [facility] Stop: 05/07/24 20:59 Last Admin: 04/08/24 20:37 Dose: 1 drops Magnesium Hydroxide (Magnesium Hydroxide Susp 30 Ml Udc) 30 ml PO Q12H PRN PRN Reason: Constipation Stop: 05/07/24 17:50 Metoprolol Tartrate (Metoprolol Tartrate 1 Mg/Ml Vial) 5 mg IV Q6 PRN PRN Reason: Tachycardia Stop: 05/08/24 00:00 Metoprolol Tartrate (Metoprolol Tartrate 50 Mg Tab) 50 mg PO BID [facility] Stop: 05/08/24 20:59 Last Admin: 04/09/24 08:57 Dose: 50 mg Ondansetron HCl (Ondansetron Inj 2 Mg/Ml 2 Ml Vial) 4 mg IV Q6H PRN PRN Reason: Nausea Stop: 05/07/24 17:50 Pantoprazole Sodium (Pantoprazole 40 Mg Tab) 40 mg PO DAILY [facility] Stop: 05/08/24 08:59 Last Admin: 04/09/24 08:57 Dose: 40 mg Polyethylene Glycol (Polyethylene (Miralax) 17 Gm Pack) 17 gm PO DAILY PRN PRN Reason: Constipation Stop: 05/07/24 17:50 Timolol Maleate (Timolol Maleate 0.5% Op Soln 5 Ml Btl) 1 drops OPB BID [facility] Stop: 05/07/24 20:59 Last Admin: 04/09/24 08:57 Dose: 1 drops
[2024-04-09 16:02] LABS: ANTI-Xa, LMWH(Low Molecular Wt 0.19 IU/ML (< 0.10)
[2024-04-09] MEDS: HEPARIN SOD (PORCINE) 1000 UNIT/ML IV ONE (16:39)
[2024-04-09] MEDS: DOXYCYCLINE HYCLATE 100 MG CAP PO SCH (19:26)
--- NOTE | 2024-04-09 23:02 | Electrocardiogram Report ---
Test Reason : Blood Pressure : / mmHG Vent. Rate : 100 BPM Atrial Rate : 000 BPM P-R Int : 000 ms QRS Dur : 074 ms QT Int : 312 ms P-R-T Axes : 000 -05 040 degrees QTc Int : 402 ms Atrial fibrillation Low voltage QRS Abnormal ECG When compared with ECG of 28-NOV-2020 20:36, Atrial fibrillation has replaced Sinus rhythm Confirmed by Khalif Herrera ([id number] on 04/09/2024 11:02:20 PM Referred By: Confirmed By:Khalif Herrera
[2024-04-10 06:25] LABS: Basophils # (auto) 0.04 K/uL (0.00-0.20); Basophils % (auto) 0.5 %; Eosinophils # (auto) 0.13 K/uL (0.00-0.50); Eosinophils % (auto) 1.5 %; Hematocrit (blood only) 28.9 % (42.0-52.0); Hemoglobin 8.9 g/dl (14.0-18.0); Immature Granulocytes # (auto) 0.04 K/uL (0.01-0.20); Immature Granulocytes % (auto) 0.5 %; Lymphocytes # (auto) 1.69 K/uL (1.20-3.40); Lymphocytes % (auto) 19.1 %; Mean Corpuscular Hemoglobin 23.2 pg (25.0-34.0); Mean Corpuscular Hgb Conc 30.8 g/dL (32.0-36.0); Mean Corpuscular Volume 75.5 fL (80.0-100.0); Mean Platelet Volume 9.8 fL (9.4-12.4); Monocytes # (auto) 0.95 K/uL (0.11-0.59); Monocytes % (auto) 10.7 %; Neutrophils # (auto) 6.01 K/uL (1.40-6.50); Neutrophils % (auto) 67.7 %; Platelet Count 344 K/uL (130-400); RDW Coefficient of Variation 17.5 % (11.5-14.5); RDW Standard Deviation 47.3 fL (36.4-46.3); Red Blood Count 3.83 M/uL (4.70-6.10); White Blood Count 8.86 K/ul (4.8-10.8)
[2024-04-10 06:44] LABS: BUN Creatinine Ratio 24.4 (10-20); Calcium 8.7 mg/dl (8.6-10.3); Est GFR (African American) 92.3 ml/min; Est GFR (Non-African American) 79.6 ml/min; Magnesium 1.8 mg/dl (1.7-2.4); Potassium 3.5 mmol/L (3.5-5.1)
[2024-04-10 06:58] LABS: ANTI-Xa, UFH(UnfractionatedHep 0.34 IU/ml (0.3-0.7)
--- NOTE | 2024-04-10 12:58 | Hospitalist Progress Note ---
Date of Service April 10, 2024 Assessment & Plan (1) New onset atrial fibrillation: (2) Anemia: (3) Human metapneumovirus (hMPV) pneumonia: (4) History of esophageal cancer: (5) GERD (gastroesophageal reflux disease): Plan Mr. Landa is an 83 year old male inmate that presented to the ED today from [facility] with complaints of SOB that started yesterday. He did not have hypoxia associated with his SOB and reports that he appears to be 'positional'. In the ED he was found to be in Atrial Fibrillation on the heart monitor. He has no prior history of A-Fib and is not on any anticoagulation medications. In the ED no leukocytosis, otherwise labs unremarkable. Mg 1.9, K+ 4.2, Troponin 16.3. Biofire done in the ED; positive for hMetapneumovirus (hMPV). Patient has a right medial aspect of his heel dime sized wound with purulent drainage that was started on oral clindamycin yesterday and due to complete treatment on 04/16. Additional abrasion on left mid padgett. Hemoglobin 9.2 and given history of esophageal cancer status post surgery and chemo therapy proceed with anemia workup. Patient will be admitted to PCU for further evaluation and management of new onset AF likely in the setting of hMPV. Low dose Heparin gtt without bolus initiated in ED, Will start Metoprolol 25 mg PO Q6 for rate control, obtain ECHO to evaluate for valve abnormalities, Procalcitonin ordered, Wound culture of R heel, blood cultures, Cardiology consultation. Will keep NPO after MN pending Cards consult and will place on Droplet precautions with supportive treatment including flutter valve, incentive spirometry, and Mucinex. Given patient's hemoglobin 9.2 and history of esophageal cancer we will proceed with anemia workup. Will add on TSH. Given possibility of pneumonia in the setting of an incarcerated elderly gentleman recently started on oral antibiotics will initiate IV antibiotics with Rocephin plus Doxy cyclin and will obtain wound culture and UA. Will adjust antibiotic coverage based on culture results. New onset atrial fibrillation: Acute Suspect in the setting of infection due to positive HM PV on bio fire and questionable UA [id number] score: 3 ECHO showed-rate controlled A-fib, borderline concentric LVH, no regional wall motion abnormalities, LV systolic function is normal with EF 55 to 60%, RV is normal in size and function, left atrium is mildly dilated, mild mitral regurgitation, pulmonary artery systolic pressure is estimated to be 39 mmHg Heparin gtt started in ED;low dose/no bolus; continue for anticoagulation TSH - Normal Cardiology consult-appreciate input and recommendation Metoprolol tartrate has been increased to 50 mg twice daily Heart rate is controlled Will start Eliquis if no evidence of active bleeding and hemoglobin remained stable Hemoglobin is slightly down at 9.0 as of 04/09/2024 Will check his stool for blood-Hemoccult was negative and the hemoglobin remained stable WillHeparin and start Eliquis from today Likely discharge tomorrow hMPV pneumonia: Acute Chest x-ray indicates: Cardiomegaly with interstitial pulmonary edema and small pleural effusions. Additional patchy ill-defined bilateral airspace opacities may represent alveolar pulmonary edema versus pneumonia. Given advanced age with possibly numerous source of infection will cover with IV Rocephin and Doxy for now and adjust based on culture results Blood cultures and UA ordered MRSA swab ordered No cough; no sputum cx ordered Supportive treatment with incentive spirometry plus flutter valve Will continue the current intravenous antibiotic He feels much better clinically but still requiring 2 L to maintain saturation Will continue oral doxycycline and intravenous ceftriaxone for now Breathing is much better and does not require any oxygen at rest Right ankle wound: Acute Reports started a few weeks ago Was started yesterday on clindamycin for a positive wound culture as an outpati ent; unsure what the culture results were 2 wounds; right heel plus left mid padgett Wound culture ordered WOCN consult placed for appropriate dressing Anemia of unknown cause: Acute Hemoglobin 9.2 No overt signs of active bleeding Will complete anemia workup with serum TIBC, ferritin levels, retic count, iron, etc. Iron level has been low, normal B12 and folate Will check Hemoccult-pending Start oral iron History of esophageal cancer: Chronic Reports underwent surgery and chemotherapy 7 years ago Received care at [facility]; no longer following Hemoccult has been negative No problem with swallowing and no abdominal discomfort Disposition: PCP: MARILYN Rowley CODE STATUS: Full code VTE prophylaxis: On heparin drip-will DC Eliquis has been started Likely discharge tomorrow Admission and Anticipated Discharge Date Admission Date: April 07, 2024 Subjective 04/08/2024 The patient was seen and examined in telemetry unit He has been stable Seems to very poor historian and cannot express his concern Denies any chest pain, palpitation or shortness of breath though he has been requiring 2 L to maintain saturation 04/09/2024 Patient was seen and examined in telemetry unit He has been stable without any acute symptoms Complains today of black stool Will get stool Hemoccult No acute cardiac symptoms 04/10/2024 The patient was seen and examined in telemetry unit He has been complaining of diarrhea but no black stool Denies any cardiac symptoms Review of Systems Review of Systems: All systems reviewed and are unremarkable except as noted below Physical Exam Physical Exam: Lying in bed without any acute distress Constitutional: + ill appearing and average body habitus Eyes: PERRL, conjunctivae normal, anicteric sclerae ENMT: external ear and nose normal, oropharynx normal Neck: trachea midline, no thyromegaly Respiratory: no respiratory distress Auscultation: + diminished lung sounds and + crackles (Minimal crackles at the bases) Cardiovascular: Rate/Rhythm: + irregularly irregular; not tachycardic Heart Sounds: normal S1, normal S2 and + murmur Extremities: no edema Gastrointestinal (Abdomen): Inspection/Auscultation: normal bowel sounds; abdomen not distended Percussion/Palpation: abdomen soft; abdomen nontender Musculoskeletal: No acute arthritis involving any of the joints Neurologic: normal touch/pain/proprioception and moves all extremities; no focal motor deficits Lymphatic: no cervical or axillary lymphadenopathy Results & Data Results & Data Vital Signs (Past 12 Hours) Vital Signs Temp Pulse Resp BP Pulse Ox O2 Del Method O2 Flow Rate 04/10/24 11:43 36.7 C 83 18 149/72 H 97 Room Air 04/10/24 07:44 36.8 C 84 18 172/83 H 96 Room Air 04/10/24 03:16 36.6 C 75 18 114/52 L 95 Nasal Cannula 2 Laboratory Results Short CBC 04/10/24 Range/Units 05:59 WBC 8.86 (4.8-10.8) K/ul Hgb 8.9 L (14.0-18.0) g/dl Hct 28.9 L (42.0-52.0) % Plt Count 344 (130-400) K/uL BMP 04/10/24 05:59 Sodium 136 Potassium 3.5 Chloride 103 Carbon Dioxide 25 BUN 21 Creatinine 0.86 Glucose 103 H Calcium 8.7 Medications Administered Current Inpatient Medications Acetaminophen (Acetaminophen 325 Mg Tab) 650 mg PO Q4H PRN PRN Reason: Pain or Fever Stop: 05/07/24 17:50 Al Hydrox/Mg Hydrox/Simethicone (Aluminum/Magnesium Susp 30 Ml Udc) 15 ml PO Q4H PRN PRN Reason: Dyspepsia Stop: 05/07/24 17:50 Apixaban (Apixaban 2.5 Mg Tab) 2.5 mg PO BID [facility] Stop: 05/10/24 12:44 Brimonidine Tartrate (Brimonidine Tartrate 0.2% 5ml) 1 drops OPB BID [facility] Stop: 05/07/24 20:59 Last Admin: 04/10/24 08:44 Dose: 1 drops Doxycycline Hyclate (Doxycycline Hyclate 100 Mg Cap) 100 mg PO Q12H [facility] Stop: 04/11/24 18:59 Last Admin: 04/10/24 08:43 Dose: 100 mg Ferrous Sulfate (Ferrous Sulfate 325 Mg Tab) 325 mg PO BIDM [facility] Stop: 05/08/24 16:59 Last Admin: 04/10/24 08:43 Dose: 325 mg Ceftriaxone Sodium (Rocephin) 2,000 mg in 50 mls @ 100 mls/hr IV Q24H [facility] Stop: 04/14/24 18:59 Last Infusion: 04/09/24 20:17 Dose: Infused Latanoprost (Latanoprost 0.005% Op Soln 2.5 Ml Btl) 1 drops OPB HS [facility] Stop: 05/07/24 20:59 Last Admin: 04/09/24 19:27 Dose: 1 drops Magnesium Hydroxide (Magnesium Hydroxide Susp 30 Ml Udc) 30 ml PO Q12H PRN PRN Reason: Constipation Stop: 05/07/24 17:50 Metoprolol Tartrate (Metoprolol Tartrate 1 Mg/Ml Vial) 5 mg IV Q6 PRN PRN Reason: Tachycardia Stop: 05/08/24 00:00 Metoprolol Tartrate (Metoprolol Tartrate 50 Mg Tab) 50 mg PO BID [facility] Stop: 05/08/24 20:59 Last Admin: 04/10/24 08:43 Dose: 50 mg Ondansetron HCl (Ondansetron Inj 2 Mg/Ml 2 Ml Vial) 4 mg IV Q6H PRN PRN Reason: Nausea Stop: 05/07/24 17:50 Pantoprazole Sodium (Pantoprazole 40 Mg Tab) 40 mg PO DAILY [facility] Stop: 05/08/24 08:59 Last Admin: 04/10/24 08:43 Dose: 40 mg Polyethylene Glycol (Polyethylene (Miralax) 17 Gm Pack) 17 gm PO DAILY PRN PRN Reason: Constipation Stop: 05/07/24 17:50 Timolol Maleate (Timolol Maleate 0.5% Op Soln 5 Ml Btl) 1 drops OPB BID [facility] Stop: 05/07/24 20:59 Last Admin: 04/10/24 08:44 Dose: 1 drops
[2024-04-10] MEDS: APIXABAN 2.5 MG TAB PO SCH (13:45)
--- NOTE | 2024-04-10 14:40 | Cardiology Progress Note ---
Date of Service April 10, 2024 Assessment & Plan (1) Atrial fibrillation, new onset: (2) Human metapneumovirus (hMPV) pneumonia: (3) Anemia: Plan 83 year old male admitted with metapneumovirus, new onset atrial fibrillation. [id number] Score 3 points. Rate control achieved with titration of metoprolol tartrate. Heparin to be transitioned to reduced dose Eliquis anticoagulation due to age and weight. Chronic anemia noted, iron deficient, in need of further evaluation and treatment; + unplanned weight loss, history of esophageal cancer status post surgery and chemotherapy at [facility]. Please contact with any questions or concerns. I spent a total of 25 minutes on the date of service in preparation, delivery, and documentation of the care provided to this patient excluding any time spent in the performance of separately billed services. This visit was a split-shared visit with the substantive portion of the medical decision making performed by the supervising director of pediatric rehabilitation/billing provider. Admission and Anticipated Discharge Date Admission Date: April 07, 2024 Supervising Physician Co-Signing Physician Notes I have reviewed the advanced practitioner's documentation on the date of service referenced in note, and I agree with, and take responsibility for the plan of care. I spent a total of [10] minutes coordinating, documenting, and providing care for this patient excluding time spent in the performance of separately billed services or time spent by another provider. Subjective Patient seen and examined. Chart, medications, and telemetry reviewed. Complaints/concerns: Left flank pain. No dysuria. No hematuria. Stools are raymundo ck. No chest pain, palpitations, shortness of breath, orthopnea, PND, or edema. Telemetry: Atrial fibrillation with heart rate predominantly in the 80s Review of Systems Review of Systems: Complete Review of Systems is as stated above, negative, or noncontributory. Physical Exam Physical Exam: General: A&Ox3. NAD. Right upper and right lower extremity shackled HENT: Normocephalic. Atraumatic. Eyes: PER. Conjunctiva pink, sclera clear. Neck: No JVD. Heart: Irregularly irregular at 80 bpm. Soft systolic murmur. No rub. Lungs: Clear to auscultation. Abdomen: +BS. Soft. Nontender. No masses or organomegaly. Extremities: Dressing covering wound on left lower extremity. No clubbing. No cyanosis. No peripheral edema. Limited neurological examination is without focal deficits. Results & Data Vital Signs (Past 12 Hours) Vital Signs Temp Pulse Resp BP Pulse Ox O2 Del Method O2 Flow Rate 04/10/24 11:43 36.7 C 83 18 149/72 H 97 Room Air 04/10/24 07:44 36.8 C 84 18 172/83 H 96 Room Air 04/10/24 03:16 36.6 C 75 18 114/52 L 95 Nasal Cannula 2 Laboratory Results CBC 04/10/24 Range/Units 05:59 WBC 8.86 (4.8-10.8) K/ul RBC 3.83 L (4.70-6.10) M/uL Hgb 8.9 L (14.0-18.0) g/dl Hct 28.9 L (42.0-52.0) % Plt Count 344 (130-400) K/uL Neut # (Auto) 6.01 (1.40-6.50) K/uL Lymph # (Auto) 1.69 (1.20-3.40) K/uL [place]gs # (Auto) 0.95 H (0.11-0.59) K/uL Eos # (Auto) 0.13 (0.00-0.50) K/uL Baso # (Auto) 0.04 (0.00-0.20) K/uL Comprehensive Metabolic Panel 04/10/24 Range/Units 05:59 Sodium 136 (136-145) mmol/L Potassium 3.5 (3.5-5.1) mmol/L Chloride 103 (98-107) mmol/L Carbon Dioxide 25 (21-32) mmol/L BUN 21 (6-23) mg/dl Creatinine 0.86 (0.6-1.4) mg/dl Glucose 103 H (70-99(Fasting)) mg/dl Calcium 8.7 (8.6-10.3) mg/dl Intake and Output 04/09/24 04/10/24 04/10/24 22:59 06:59 14:59 Intake Total 190.6 / 890.0 175.8 / 890.0 950 / 950 Output Total 350 / 750 Balance 190.6 / 140.0 -174.2 / 140.0 949 / 949 Intake: IV 190.6 / 650.0 175.8 / 650.0 Heparin Sodium/Dextrose 25,000 140.6 / 500.0 175.8 / 500.0 units In 500 ml @ 1,100 UNITS/ HR 22 mls/hr IV .[id number] [facility] Rx #:[id number] cefTRIAXone SODIUM 2,000 mg In 50 / 50 50 ml @ 100 mls/hr IV Q24H [facility] Rx#:[id number] Oral 950 / 950 Output: Urine 350 / 750 # Bowel Movements 1 / Other: # Unmeasured Voids 1 2 Weight 60.8 kg Weight Measurement Method Built in [facility] (3) Anemia Anemia type: unspecified type Qualified Code(s): D64.9 - Anemia, unspecified
[2024-04-10] MEDS: ACETAMINOPHEN 325 MG TAB PO PRN (15:41)
[2024-04-11 09:49] LABS: Basophils # (auto) 0.02 K/uL (0.00-0.20); Basophils % (auto) 0.2 %; Eosinophils # (auto) 0.05 K/uL (0.00-0.50); Eosinophils % (auto) 0.6 %; Hematocrit (blood only) 29.4 % (42.0-52.0); Hemoglobin 8.8 g/dl (14.0-18.0); Immature Granulocytes # (auto) 0.06 K/uL (0.01-0.20); Immature Granulocytes % (auto) 0.7 %; Lymphocytes # (auto) 0.96 K/uL (1.20-3.40); Lymphocytes % (auto) 10.7 %; Mean Corpuscular Hgb Conc 29.9 g/dL (32.0-36.0); Mean Corpuscular Volume 76.8 fL (80.0-100.0); Mean Platelet Volume 9.6 fL (9.4-12.4); Monocytes # (auto) 0.41 K/uL (0.11-0.59); Monocytes % (auto) 4.6 %; Neutrophils % (auto) 83.2 %; Platelet Count 374 K/uL (130-400); RDW Coefficient of Variation 17.9 % (11.5-14.5); RDW Standard Deviation 49.3 fL (36.4-46.3); Red Blood Count 3.83 M/uL (4.70-6.10)
[2024-04-11 09:55] LABS: Calcium 8.8 mg/dl (8.6-10.3); Creatinine Clr Calc Pharmacy 52.1 ml/min; Est GFR (African American) 89.4 ml/min; Est GFR (Non-African American) 77.1 ml/min; Magnesium 1.8 mg/dl (1.7-2.4); Potassium 3.9 mmol/L (3.5-5.1)
--- NOTE | 2024-04-11 11:15 | Hospitalist Progress Note ---
Date of Service April 11, 2024 Assessment & Plan (1) New onset atrial fibrillation: (2) Anemia: (3) Human metapneumovirus (hMPV) pneumonia: (4) History of esophageal cancer: (5) GERD (gastroesophageal reflux disease): Plan Mr. Landa is an 83 year old male inmate that presented to the ED today from [facility] with complaints of SOB that started yesterday. He did not have hypoxia associated with his SOB and reports that he appears to be 'positional'. In the ED he was found to be in Atrial Fibrillation on the heart monitor. He has no prior history of A-Fib and is not on any anticoagulation medications. In the ED no leukocytosis, otherwise labs unremarkable. Mg 1.9, K+ 4.2, Troponin 16.3. Biofire done in the ED; positive for hMetapneumovirus (hMPV). Patient has a right medial aspect of his heel dime sized wound with purulent drainage that was started on oral clindamycin yesterday and due to complete treatment on 04/16. Additional abrasion on left mid padgett. Hemoglobin 9.2 and given history of esophageal cancer status post surgery and chemo therapy proceed with anemia workup. Patient will be admitted to PCU for further evaluation and management of new onset AF likely in the setting of hMPV. Low dose Heparin gtt without bolus initiated in ED, Will start Metoprolol 25 mg PO Q6 for rate control, obtain ECHO to evaluate for valve abnormalities, Procalcitonin ordered, Wound culture of R heel, blood cultures, Cardiology consultation. Will keep NPO after MN pending Cards consult and will place on Droplet precautions with supportive treatment including flutter valve, incentive spirometry, and Mucinex. Given patient's hemoglobin 9.2 and history of esophageal cancer we will proceed with anemia workup. Will add on TSH. Given possibility of pneumonia in the setting of an incarcerated elderly gentleman recently started on oral antibiotics will initiate IV antibiotics with Rocephin plus Doxy cyclin and will obtain wound culture and UA. Will adjust antibiotic coverage based on culture results. New onset atrial fibrillation: Acute Suspect in the setting of infection due to positive HM PV on bio fire and questionable UA [id number] score: 3 ECHO showed-rate controlled A-fib, borderline concentric LVH, no regional wall motion abnormalities, LV systolic function is normal with EF 55 to 60%, RV is normal in size and function, left atrium is mildly dilated, mild mitral regurgitation, pulmonary artery systolic pressure is estimated to be 39 mmHg Heparin gtt started in ED;low dose/no bolus; continue for anticoagulation TSH - Normal Cardiology consult-appreciate input and recommendation Metoprolol tartrate has been increased to 50 mg twice daily Heart rate is controlled Will start Eliquis if no evidence of active bleeding and hemoglobin remained stable Hemoglobin is slightly down at 9.0 as of 04/09/2024 Will check his stool for blood-Hemoccult was negative and the hemoglobin remained stable WillHeparin and start Eliquis from today Likely discharge tomorrow Denies any cardiac symptoms and have been tolerating Eliquis well Will be discharged to the long term this afternoon hMPV pneumonia: Acute Chest x-ray indicates: Cardiomegaly with interstitial pulmonary edema and small pleural effusions. Additional patchy ill-defined bilateral airspace opacities may represent alveolar pulmonary edema versus pneumonia. Given advanced age with possibly numerous source of infection will cover with IV Rocephin and Doxy for now and adjust based on culture results Blood cultures and UA ordered MRSA swab ordered No cough; no sputum cx ordered Supportive treatment with incentive spirometry plus flutter valve Will continue the current intravenous antibiotic He feels much better clinically but still requiring 2 L to maintain saturation Will continue oral doxycycline and intravenous ceftriaxone for now Breathing is much better and does not require any oxygen at rest Will finish the course of antibiotic for a total of 7 days Right ankle wound: Acute Reports started a few weeks ago Was started yesterday on clindamycin for a positive wound culture as an outpatient; unsure what the culture results were 2 wounds; right heel plus left mid padgett Wound culture ordered WOCN consult placed for appropriate dressing Anemia of unknown cause: Acute Hemoglobin 9.2 No overt signs of active bleeding Will complete anemia workup with serum TIBC, ferritin levels, retic count, iron, etc. Iron level has been low, normal B12 and folate Will check Hemoccult-pending Start oral iron Will inform the physician at the long term about a follow-up with GI for possible scope History of esophageal cancer: Chronic Reports underwent surgery and chemotherapy 7 years ago Received care at [facility]; no longer following Hemoccult has been negative No problem with swallowing and no abdominal discomfort Disposition: PCP: MARILYN Reneenner CODE STATUS: Full code VTE prophylaxis: On heparin drip-will DC Eliquis has been started Likely discharge tomorrow Admission and Anticipated Discharge Date Admission Date: April 07, 2024 Subjective 04/08/2024 The patient was seen and examined in telemetry unit He has been stable Seems to very poor historian and cannot express his concern Denies any chest pain, palpitation or shortness of breath though he has been requiring 2 L to maintain saturation 04/09/2024 Patient was seen and examined in telemetry unit He has been stable without any acute symptoms Complains today of black stool Will get stool Hemoccult No acute cardiac symptoms 04/10/2024 The patient was seen and examined in telemetry unit He has been complaining of diarrhea but no black stool Denies any cardiac symptoms 04/11/2024 The patient was seen and examined in telemetry unit He has been complaining of some back pain Denies any cardiac symptoms He has been tolerating Eliquis well Will be discharged to the long term this afternoon Review of Systems Review of Systems: All systems reviewed and are unremarkable except as noted below Physical Exam Physical Exam: Lying in bed without any acute distress Constitutional: + ill appearing and average body habitus Eyes: PERRL, conjunctivae normal, anicteric sclerae ENMT: external ear and nose normal, oropharynx normal Neck: trachea midline, no thyromegaly Respiratory: no respiratory distress Auscultation: + diminished lung sounds and + crackles (Minimal crackles at the bases) Cardiovascular: Rate/Rhythm: + irregularly irregular; not tachycardic Heart Sounds: normal S1, normal S2 and + murmur Extremities: no edema Gastrointestinal (Abdomen): Inspection/Auscultation: normal bowel sounds; abdomen not distended Percussion/Palpation: abdomen soft; abdomen nontender Musculoskeletal: Minimal localized tenderness at the back. No acute arthritis involving any of the joints Neurologic: normal touch/pain/proprioception and moves all extremities; no focal motor deficits Lymphatic: no cervical or axillary lymphadenopathy Results & Data Results & Data Vital Signs (Past 12 Hours) Vital Signs Temp Pulse Resp BP Pulse Ox O2 Del Method 04/11/24 10:57 36.4 C L 74 18 139/81 95 Room Air 04/11/24 07:06 36.5 C 76 18 143/74 H 93 Room Air 04/11/24 03:37 36.6 C 70 18 138/71 94 Room Air Laboratory Results Short CBC 04/11/24 Range/Units 09:17 WBC 9.00 (4.8-10.8) K/ul Hgb 8.8 L (14.0-18.0) g/dl Hct 29.4 L (42.0-52.0) % Plt Count 374 (130-400) K/uL BMP 04/11/24 09:17 Sodium 133 L Potassium 3.9 Chloride 101 Carbon Dioxide 25 BUN 20 Creatinine 0.91 Glucose 168 H Calcium 8.8 Medications Administered Current Inpatient Medications Acetaminophen (Acetaminophen 325 Mg Tab) 650 mg PO Q4H PRN PRN Reason: Pain or Fever Stop: 05/07/24 17:50 Last Admin: 04/11/24 08:31 Dose: 650 mg Al Hydrox/Mg Hydrox/Simethicone (Aluminum/Magnesium Susp 30 Ml Udc) 15 ml PO Q4H PRN PRN Reason: Dyspepsia Stop: 05/07/24 17:50 Apixaban (Apixaban 2.5 Mg Tab) 2.5 mg PO BID [facility] Stop: 05/10/24 12:44 Last Admin: 04/11/24 08:30 Dose: 2.5 mg Brimonidine Tartrate (Brimonidine Tartrate 0.2% 5ml) 1 drops OPB BID [facility] Stop: 05/07/24 20:59 Last Admin: 04/11/24 08:32 Dose: 1 drops Doxycycline Hyclate (Doxycycline Hyclate 100 Mg Cap) 100 mg PO Q12H [facility] Stop: 04/11/24 18:59 Last Admin: 04/11/24 06:38 Dose: 100 mg Ferrous Sulfate (Ferrous Sulfate 325 Mg Tab) 325 mg PO BIDM [facility] Stop: 05/08/24 16:59 Last Admin: 04/11/24 08:30 Dose: 325 mg Ceftriaxone Sodium (Rocephin) 2,000 mg in 50 mls @ 100 mls/hr IV Q24H [facility] Stop: 04/14/24 18:59 Last Infusion: 04/10/24 19:56 Dose: Infused Latanoprost (Latanoprost 0.005% Op Soln 2.5 Ml Btl) 1 drops OPB HS [facility] Stop: 05/07/24 20:59 Last Admin: 04/10/24 20:28 Dose: 1 drops Magnesium Hydroxide (Magnesium Hydroxide Susp 30 Ml Udc) 30 ml PO Q12H PRN PRN Reason: Constipation Stop: 05/07/24 17:50 Metoprolol Tartrate (Metoprolol Tartrate 1 Mg/Ml Vial) 5 mg IV Q6 PRN PRN Reason: Tachycardia Stop: 05/08/24 00:00 Metoprolol Tartrate (Metoprolol Tartrate 50 Mg Tab) 50 mg PO BID [facility] Stop: 05/08/24 20:59 Last Admin: 04/11/24 08:30 Dose: 50 mg Ondansetron HCl (Ondansetron Inj 2 Mg/Ml 2 Ml Vial) 4 mg IV Q6H PRN PRN Reason: Nausea Stop: 05/07/24 17:50 Pantoprazole Sodium (Pantoprazole 40 Mg Tab) 40 mg PO DAILY [facility] Stop: 05/08/24 08:59 Last Admin: 04/11/24 08:30 Dose: 40 mg Polyethylene Glycol (Polyethylene (Miralax) 17 Gm Pack) 17 gm PO DAILY PRN PRN Reason: Constipation Stop: 05/07/24 17:50 Timolol Maleate (Timolol Maleate 0.5% Op Soln 5 Ml Btl) 1 drops OPB BID [facility] Stop: 05/07/24 20:59 Last Admin: 04/11/24 08:31 Dose: 1 drops
--- NOTE | 2024-04-11 16:34 | Discharge Summary ---
Date of Service April 11, 2024 Admission HPI Per Admitting Provider Mr. Landa is an 83 year old male that presented to the ED today from [facility] with complaints of SOB that started yesterday. He did not have hypoxia associated with his SOB and reports that he appears to be 'positional'. In the ED he was found to be in Atrial Fibrillation on the heart monitor. He has no prior history of A-Fib and is not on any anticoagulation medications. In the ED no leukocytosis, otherwise labs unremarkable. Mg 1.9, K+ 4.2, Troponin 16.3. Biofire done in the ED; positive for hMetapneumovirus (hMPV). Patient has a right medial aspect of his heel dime sized wound with purulent d rainage that was started on oral clindamycin yesterday and due to complete treatment on 04/16. Additional abrasion on left mid padgett. Patient with hemoglobin 9.2 and given history of esophageal cancer status post surgery and chemo therapy proceed with anemia workup. Chest x-ray performed in the ED indicated cardiomegaly with interstitial pulmonary edema and small pleural effusions with patchy opacities potentially representing pulmonary edema versus pneumonia. On examination patient AAO x 4 and able to participate in full review of systems in no apparent distress. Patient did not become hypoxic during my encounter. Lung sounds anteriorly clear to auscultation posterior lower lung bases with crackles. Otherwise euvolemic to dry on exam. Do not suspect patient to be in overt heart failure and no known history of heart failure. Patient will be admitted to PCU for further evaluation and management of new onset AF likely in the setting of hMPV. Low dose Heparin gtt without bolus initi ated in ED, Will start Metoprolol 25 mg PO Q6 for rate control, obtain ECHO to evaluate for valve abnormalities, Procalcitonin ordered, Wound culture of R heel, blood cultures, Cardiology consultation. Will keep NPO after MN pending Cards consult and will place on Droplet precautions with supportive treatment including flutter valve, incentive spirometry, and Mucinex. Given patient's hemoglobin 9.2 and history of esophageal cancer we will proceed with anemia workup. Will add on TSH. Given possibility of pneumonia in the setting of an incarcerated elderly gentleman recently started on oral antibiotics will initiate IV antibiotics with Rocephin plus Doxy cyclin and will obtain wound culture and UA. Will adjust antibiotic coverage based on culture results. Admission Exam Per Admitting Provider Physical Exam: Neuro: AAOx4, PERRLA, no aphagia, memory changes, CNII-XII grossly intact HEENT: head normocephalic, moist mucus membranes CV: S1/S2, (-) M/G/R, (-) edema, cap refill < 3 seconds Resp: Lungs anteriorly CTA posterior crackles left lower base GI: Abdomen S/NT/ND, Ax4 bowel sounds, (-) CVA tenderness Musculoskeletal: 5/5 B/L UE strength, 5/5 B/L LE strength. No gait disturbance Skin: (-) rashes , (-) erythema. (+) two open areas R finger, dry (+) R medial aspect ankle with purulent drainage Psych: euthymic mood Principal Diagnosis New onset atrial fibrillation, chronic anemia. Bibasilar pneumonia Discharge Exam Lying in bed without any acute distress Constitutional + ill appearing and average body habitus Eyes PERRL, conjunctivae normal, anicteric sclerae ENMT external ear and nose normal, oropharynx normal Neck trachea midline, no thyromegaly Respiratory no respiratory distress Auscultation: + diminished lung sounds and + crackles (Minimal crackles at the bases) Cardiovascular Rate/Rhythm: + irregularly irregular; not tachycardic Heart Sounds: normal S1, normal S2 and + murmur Extremities: no edema Gastrointestinal (Abdomen) Inspection/Auscultation: normal bowel sounds; abdomen not distended Percussion/Palpation: abdomen soft; abdomen nontender Neurologic normal touch/pain/proprioception and moves all extremities; no focal motor deficits Lymphatic no cervical or axillary lymphadenopathy Discharge Data Allergies Allergy/AdvReac Type Severity Reaction Status Date / Time No Known Allergies Allergy Unverified 04/07/24 18:41 Consultations 04/07/24 17:47 ED Decision to Admit Stat 04/07/24 17:51 Consult Cardiology Routine Hospital Course (1) New onset atrial fibrillation: (2) Anemia: (3) Human metapneumovirus (hMPV) pneumonia: (4) History of esophageal cancer: (5) GERD (gastroesophageal reflux disease): Plan Mr. Landa is an 83 year old male inmate that presented to the ED today from [facility] with complaints of SOB that started yesterday. He did not have hypoxia associated with his SOB and reports that he appears to be 'positional'. In the ED he was found to be in Atrial Fibrillation on the heart monitor. He has no prior history of A-Fib and is not on any anticoagulation medications. In the ED no leukocytosis, otherwise labs unremarkable. Mg 1.9, K+ 4.2, Troponin 16.3. Biofire done in the ED; positive for hMetapneumovirus (hMPV). Patient has a right medial aspect of his heel dime sized wound with purulent drainage that was started on oral clindamycin yesterday and due to complete treatment on 04/16. Additional abrasion on left mid padgett. Hemoglobin 9.2 and given history of esophageal cancer status post surgery and chemo therapy proceed with anemia workup. Patient will be admitted to PCU for further evaluation and management of new onset AF likely in the setting of hMPV. Low dose Heparin gtt without bolus initiated in ED, Will start Metoprolol 25 mg PO Q6 for rate control, obtain ECHO to evaluate for valve abnormalities, Procalcitonin ordered, Wound culture of R heel, blood cultures, Cardiology consultation. Will keep NPO after MN pending Cards consult and will place on Droplet precautions with supportive treatment including flutter valve, incentive spirometry, and Mucinex. Given patient's hemoglobin 9.2 and history of esophageal cancer we will proceed with anemia workup. Will add on TSH. Given possibility of pneumonia in the setting of an incarcerated elderly gentleman recently started on oral antibiotics will initiate IV antibiotics with Rocephin plus Doxy cyclin and will obtain wound culture and UA. Will adjust antibiotic coverage based on culture results. New onset atrial fibrillation: Acute Suspect in the setting of infection due to positive HM PV on bio fire and questionable UA [id number] score: 3 ECHO showed-rate controlled A-fib, borderline concentric LVH, no regional wall motion abnormalities, LV systolic function is normal with EF 55 to 60%, RV is normal in size and function, left atrium is mildly dilated, mild mitral regurgitation, pulmonary artery systolic pressure is estimated to be 39 mmHg Heparin gtt started in ED;low dose/no bolus; continue for anticoagulation TSH - Normal Cardiology consult-appreciate input and recommendation Metoprolol tartrate has been increased to 50 mg twice daily Heart rate is controlled Will start Eliquis if no evidence of active bleeding and hemoglobin remained stable Hemoglobin is slightly down at 9.0 as of 04/09/2024 Will check his stool for blood-Hemoccult was negative and the hemoglobin remained stable WillHeparin and start Eliquis from today Likely discharge tomorrow Denies any cardiac symptoms and have been tolerating Eliquis well Will be discharged to the [facility] this afternoon hMPV pneumonia: Acute Chest x-ray indicates: Cardiomegaly with interstitial pulmonary edema and small pleural effusions. Additional patchy ill-defined bilateral airspace opacities may represent alveolar pulmonary edema versus pneumonia. Given advanced age with possibly numerous source of infection will cover with IV Rocephin and Doxy for now and adjust based on culture results Blood cultures and UA ordered MRSA swab ordered No cough; no sputum cx ordered Supportive treatment with incentive spirometry plus flutter valve Will continue the current intravenous antibiotic He feels much better clinically but still requiring 2 L to maintain saturation Will continue oral doxycycline and intravenous ceftriaxone for now Breathing is much better and does not require any oxygen at rest Will finish the course of antibiotic for a total of 7 days Right ankle wound: Acute Reports started a few weeks ago Was started yesterday on clindamycin for a positive wound culture as an outpatient; unsure what the culture results were 2 wounds; right heel plus left mid padgett Wound culture ordered WOCN consult placed for appropriate dressing Anemia of unknown cause: Acute Hemoglobin 9.2 No overt signs of active bleeding Will complete anemia workup with serum TIBC, ferritin levels, retic count, iron, etc. Iron level has been low, normal B12 and folate Will check Hemoccult-pending Start oral iron Will inform the physician at the correction about a follow-up with GI for possible scope History of esophageal cancer: Chronic Reports underwent surgery and chemotherapy 7 years ago Received care at [facility]; no longer following Hemoccult has been negative No problem with swallowing and no abdominal discomfort Disposition: PCP: MARILYN Amrik CODE STATUS: Full code VTE prophylaxis: On heparin drip-will DC Eliquis has been started Likely discharge tomorrow Total Time Total Time Spent Total Time Spent (In Minutes): 40 minutes Discharge Plan Discharge Items [facility] Disposition[facility] Reason For Visit: NEW ONSET AF Discharge Diagnosis: New onset atrial fibrillation, chronic anemia. Bibasilar pneumonia Condition on Discharge: Good Activity: Resume your previous activity Non-emergency contact: Primary Care Provider Call non-emergency contact if: you have any medication questions and your symptoms worsen Follow-up/Referrals: Jaylan SANDERS [Primary Care Provider] - Diet: Heart Healthy Addtl Attending Provider Instructions: Please take precautions to avoid falls Finish the course of antibiotic Take your medicines as advised Chest x-ray can be repeated in 6 weeks to see the clearance of pneumonia He may need to undergo EGD and colonoscopy as an outpatient for ongoing anemia No acute bleeding in the hospital Pending Studies at Discharge: No Stand-Alone Forms: My [facility] Skilled Items Patient informed of condition?: Yes Discharge Level of Care: Other Communicable Disease: No Discharge Prognosis: Stable Lines: None Urinary Catheter: No Medications and DC Order Prescriptions: New doxycycline hyclate 100 mg Capsule 100 mg PO Q12H Qty: 10 0RF metoprolol tartrate 50 mg Tablet 50 mg PO BID Qty: 60 0RF ferrous sulfate 325 mg (65 mg iron) Tablet,Delayed Release (Dr/Ec) 325 mg PO BIDM Qty: 60 0RF Eliquis 2.5 mg Tablet 2.5 mg PO BID Qty: 6 0RF cefadroxil 500 mg capsule 500 mg PO BID Qty: 10 0RF Continued latanoprost 0.005 % Drops 1 drp OPB HS aspirin 81 mg Tablet,Delayed Release (Dr/Ec) 81 mg PO DAILY acetaminophen [Tylenol Extra Strength] 500 mg Tablet 500 mg PO QID timolol 0.5 % Drops 1 drp OPB BID brimonidine 0.2 % Drops 1 drp OPB BID alendronate 70 mg Tablet 70 mg PO DAILY omeprazole 40 mg Capsule,Delayed Release(Dr/Ec) 40 mg PO DAILY omeprazole 20 mg Capsule,Delayed Release(Dr/Ec) 20 mg PO DAILY Discontinued clindamycin HCl 150 mg Capsule 300 mg PO TID Rx Instructions: Stop 04/16/2024 meloxicam 7.5 mg Tablet 7.5 mg PO DAILY metoprolol tartrate 25 mg Tablet 25 mg PO BID Discharge Orders: Discharge Order (Routine); Ordered 04/11/24 Ordered By: Na Holt Admission Data Admit Date/Time: 04/07/24 17:51 Attending Provider: Na Holt Admit Provider: Cheyanne Butler Primary Care Provider: Jaylan SANDERS Other Providers: Cheyanne Butler; Yaron Vo Other Interventions: Discharge Summary Assessment (RN) Last Done: 04/11/24 15:19
== END 2024-04-11 16:45 | DRG 308 ==
LOC: ED 15:25 → SUATTDRO 17:51 → EDINP 17:51 → 2S 19:34